=== PATIENT | male | born 1960 | race Caucasian/White ===

== ENCOUNTER 2020-10-14 20:26 | Inpatient (IN) | payer BC, OTHER ==
[2020-10-14 21:22] LABS: Basophils % (A) 1 %; Eosinophils # (A) 0.1 k/uL (0-0.7); Eosinophils % (A) 1 %; HCT 50.6 % (39.0-53.0); HGB 17.8 gm/dL (13.0-17.5); Lymphocytes # (A) 0.7 k/uL (1.0-4.8); Lymphocytes % (A) 17 %; MCHC 35.1 g/dL (31.0-37.0); MCV 91.1 fL (80.0-100.0); Mean Platelet Volume 7.6; Monocytes # (A) 0.2 k/uL (0-1.0); Monocytes % (A) 5 %; Neutrophils # (A) 2.8 k/uL (1.3-7.7); Neutrophils % (A) 75 %; Platelet Count 168 k/uL (150-450); RBC 5.55 m/uL (4.30-5.90); WBC 3.8 k/uL (3.8-10.6)
--- NOTE | 2020-10-14 21:27 | ED ---
SOB HPI - General Chief Complaint: Shortness of Breath Stated Complaint: SOB Time Seen by Provider: 10/14/20 20:39 Source: patient Mode of arrival: wheelchair Limitations: no limitations - History of Present Illness Initial Comments: Pan is a 60-year-old male who presents to the emergency department today for evaluation of shortness of breath, fever and body aches. Patient reports he's been progressively getting worse over approximately 10 days, he has a cough that is nonproductive, shortness of breath and worsening. She denies any chest pain or palpitations. He's had subjective fevers. Denies any nausea vomiting or diarrhea but does report a change in taste and smell. Patient's concerned he may have COVID 1920 has no known exposure she does report that he has been grocery shopping once every 2 weeks and he did going to public to have a haircut. - Related Data Allergies Allergy/AdvReac Type Severity Reaction Status Date / Time No Known Allergies Allergy Verified 10/14/20 20:31 Review of Systems ROS Statement: Those systems with pertinent positive or pertinent negative responses have been documented in the HPI. ROS Other: All systems not noted in ROS Statement are negative. Past Medical History Past Medical History: Pulmonary Embolus (PE) History of Any Multi-Drug Resistant Organisms: None Reported Additional Past Surgical History / Comment(s): rt leg vascular repair Past Psychological History: No Psychological Hx Reported Smoking Status: Former smoker Past Alcohol Use History: None Reported Past Drug Use History: None Reported General Exam - General Exam Comments Initial Comments: Physical Exam GENERAL: Ill appearing Mottled skin HENT: Normocephalic, Atraumatic. EYES: PERRL, EOMI PULMONARY: Tachypnea, clear respirations CARDIOVASCULAR: There is a regular rate and rhythm without any murmurs gallops or rubs. ABDOMEN: Soft and nontender with normal bowel sounds. SKIN: mottled : Deferred NEUROLOGIC: Patient is alert and oriented x3. Moving all extremities spontaneously MUSCULOSKELETAL: Normal extremities with adequate strength and full range of motion. No lower extremity swelling or edema. No calf tenderness. PSYCHIATRIC: Normal psychiatric evaluation. Limitations: no limitations Course Vital Signs 10/14/20 20:28 Temperature 99.9 F H Pulse Rate 99 Respiratory 28 H Rate Blood Pressure 101/69 O2 Sat by Pulse 83 L Oximetry Medical Decision Making - Medical Decision Making Patient febrile, tachycardic and tachypneic on arrival with hypoxia to 83% on room air placed on 6 L nasal cannula COVID workup initiated Labs and chest x-ray are consistent with COVID, rapid COVID test is positive Given that the patient is requiring oxygen we will plan to admit the patient for COVID pneumonia with hypoxia Patient care was [facility] with [facility] the admission consults to infectious di sease and pulmonology - Lab Data Result diagrams: 10/14/20 21:12 10/14/20 21:12 Lab Results 10/14/20 10/14/20 10/14/20 Range/Units 21:12 21:12 21:12 WBC 3.8 (3.8-10.6) k/uL RBC 5.55 (4.30-5.90) m/uL Hgb 17.8 H (13.0-17.5) gm/dL Hct 50.6 (39.0-53.0) % MCV 91.1 (80.0-100.0) fL MCH 32.0 (25.0-35.0) pg MCHC 35.1 (31.0-37.0) g/dL RDW 13.0 (11.5-15.5) % Plt Count 168 (150-450) k/uL MPV 7.6 Neutrophils % 75 % Lymphocytes % 17 % Monocytes % 5 % Eosinophils % 1 % Basophils % 1 % Neutrophils # 2.8 (1.3-7.7) k/uL Lymphocytes # 0.7 L (1.0-4.8) k/uL Monocytes # 0.2 (0-1.0) k/uL Eosinophils # 0.1 (0-0.7) k/uL Basophils # 0.0 (0-0.2) k/uL PT 10.3 (9.0-12.0) sec INR 1.0 (<1.2) APTT 22.8 (22.0-30.0) sec D-Dimer 1.46 H (<0.60) mg/L FEU Sodium 135 L (137-145) mmol/L Potassium 3.9 (3.5-5.1) mmol/L Chloride 103 (98-107) mmol/L Carbon Dioxide 22 (22-30) mmol/L Anion Gap 10 mmol/L BUN 43 H (9-20) mg/dL Creatinine 1.66 H (0.66-1.25) mg/dL Est GFR (CKD-EPI)AfAm 51 (>60 ml/min/1.73 sqM) Est GFR (CKD-EPI)NonAf 44 (>60 ml/min/1.73 sqM) Glucose 133 H (74-99) mg/dL Calcium 9.1 (8.4-10.2) mg/dL Magnesium 2.1 (1.6-2.3) mg/dL Total Bilirubin 1.0 (0.2-1.3) mg/dL AST 75 H (17-59) U/L ALT 57 H (4-49) U/L Alkaline Phosphatase 77 (38-126) U/L Lactate Dehydrogenase 2143 H (313-618) U/L C-Reactive Protein 69.2 H (<10.0) mg/L Total Protein 6.7 (6.3-8.2) g/dL Albumin 3.8 (3.5-5.0) g/dL Coronavirus (PCR) (Not Detectd) 10/14/20 Range/Units 21:12 WBC (3.8-10.6) k/uL RBC (4.30-5.90) m/uL Hgb (13.0-17.5) gm/dL Hct (39.0-53.0) % MCV (80.0-100.0) fL MCH (25.0-35.0) pg MCHC (31.0-37.0) g/dL RDW (11.5-15.5) % Plt Count (150-450) k/uL MPV Neutrophils % % Lymphocytes % % Monocytes % % Eosinophils % % Basophils % % Neutrophils # (1.3-7.7) k/uL Lymphocytes # (1.0-4.8) k/uL Monocytes # (0-1.0) k/uL Eosinophils # (0-0.7) k/uL Basophils # (0-0.2) k/uL PT (9.0-12.0) sec INR (<1.2) APTT (22.0-30.0) sec D-Dimer (<0.60) mg/L FEU Sodium (137-145) mmol/L Potassium (3.5-5.1) mmol/L Chloride (98-107) mmol/L Carbon Dioxide (22-30) mmol/L Anion Gap mmol/L BUN (9-20) mg/dL Creatinine (0.66-1.25) mg/dL Est GFR (CKD-EPI)AfAm (>60 ml/min/1.73 sqM) Est GFR (CKD-EPI)NonAf (>60 ml/min/1.73 sqM) Glucose (74-99) mg/dL Calcium (8.4-10.2) mg/dL Magnesium (1.6-2.3) mg/dL Total Bilirubin (0.2-1.3) mg/dL AST (17-59) U/L ALT (4-49) U/L Alkaline Phosphatase (38-126) U/L Lactate Dehydrogenase (313-618) U/L C-Reactive Protein (<10.0) mg/L Total Protein (6.3-8.2) g/dL Albumin (3.5-5.0) g/dL Coronavirus (PCR) Detected A (Not Detectd) Disposition Clinical Impression: COVID-19, Hypoxia Disposition: ADMITTED IP TO THIS HOSP Condition: Serious Is patient prescribed a controlled substance at d/c from ED?: No Referrals: Lynn Seth DO [Primary Care Provider] - 1-2 days
--- NOTE | 2020-10-14 21:31 | XR ---
EXAMINATION TYPE: XR chest 1V portable DATE OF EXAM: 10/14/2020 COMPARISON: NONE HISTORY: Short of breath and fever TECHNIQUE: Renal view FINDINGS: There is some pulmonary interstitial edema. Heart is top normal in size. There are chest le ads. Costophrenic angles are clear. IMPRESSION: Mild pulmonary interstitial edema. Borderline cardiomegaly. Appearance could relate to mi ld acute heart failure or acute interstitial pneumonia.
[2020-10-14 21:33] LABS: Albumin 3.8 g/dL (3.5-5.0); C Reactive Protein 69.2 mg/L (<10.0); Calcium 9.1 mg/dL (8.4-10.2); Magnesium 2.1 mg/dL (1.6-2.3); Potassium 3.9 mmol/L (3.5-5.1); Total Protein 6.7 g/dL (6.3-8.2)
[2020-10-14 21:37] LABS: Partial Thromboplastin Time 22.8 sec (22.0-30.0); Prothrombin Time 10.3 sec (9.0-12.0)
[2020-10-14 21:41] LABS: D-Dimer 1.46 mg/L FEU (<0.60)
[2020-10-14] MEDS ORDERED: NALOXONE 0.4 MG/ML 1 ML VIAL IV PRN (21:48)
[2020-10-14] MEDS ORDERED: SODIUM CHLORIDE 0.9% 500 ML 500 ML IV ONE (22:54)
[2020-10-14] MEDS ORDERED: IPRATROPIUM-ALBUTEROL 3 ML NEB INHALATION PRN (23:47)
[2020-10-14] MEDS ORDERED: ACETAMINOPHEN TAB 325 MG TAB PO PRN (23:50)
[2020-10-14] MEDS: SODIUM CHLORIDE 0.9% 1,000 ML IV SCH (23:56)
[2020-10-14] MEDS: DEXAMETHASONE SOD PHOSPHATE 10 MG/ML 1 ML VIAL IV SCH (23:57)
[2020-10-15 04:12] LABS: Ferritin 2747.5 ng/mL (22.0-322.0)
[2020-10-15] MEDS ORDERED: ALBUTEROL HFA INHALER INHALATION PRN (05:18)
[2020-10-15] MEDS: INSULIN ASPART (NovoLOG) 100 UNIT/ML VIAL SQ SCH ×4 (06:44→20:49)
[2020-10-15 06:48] LABS: Glucose,Whole Blood 139 mg/dL (75-99)
[2020-10-15] MEDS: DEXAMETHASONE SOD PHOSPHATE 10 MG/ML 1 ML VIAL IV SCH ×2 (08:20→20:50)
[2020-10-15] MEDS: ALBUTEROL HFA INHALER INHALATION SCH ×4 (08:40→20:58)
[2020-10-15] MEDS ORDERED: ENOXAPARIN 40 MG/0.4 ML SYRINGE SQ STA (10:13)
[2020-10-15 10:54] LABS: Glucose,Whole Blood 154 mg/dL (75-99)
[2020-10-15] MEDS: CHOLECALCIFEROL 25 MCG (1000 IU) TABLET PO SCH (11:06)
[2020-10-15] MEDS: ZINC SULFATE 220 MG CAP PO SCH (11:06)
[2020-10-15] MEDS: ASCORBIC ACID 500 MG TAB PO SCH (11:06)
[2020-10-15] MEDS: COLCHICINE 0.6 MG EACH PO SCH ×2 (11:08→20:49)
--- NOTE | 2020-10-15 12:40 | P.CNPUL ---
History of Present Illness Consult date: 10/15/20 Requesting physician: Marco Suarez Reason for consult: dyspnea, pneumonia Chief complaint: Shortness of breath, fever History of present illness: This is a 60-year-old white male, known previous significant medical history except for remote history of pulmonary embolism, patient was brought into the ER yesterday with multiple constitutional symptoms since October 01. Patient has been complaining of intermittent episodes of fever chills, nausea vomiting, shortness of breath, cough, fever and body aches. This has been progressively getting worse over the last 2 weeks. Describes the cough as nonproductive cough, but it is associated with significant shortness of breath. Patient had no diarrhea, no loss of sensation of taste or smell. No clear-cut history of exposure to any patient with covid19 infection. But the patient has been grocery shopping and has been going in public to have a haircut. Workup in the ER showed mild interstitial infiltrates/interstitial pneumonia, and he also tested positive for covid 19 based on PCR patient required significant amount of FiO2, he was placed on 15 L high flow nasal cannula to maintain O2 saturation in the low 90s. Hence the patient was admitted and this consult was initiated. I evaluated the patient this morning, and he was noted to be extremely short of breath, his clinical findings and his chest x-ray findings did not truly c orrelate with his profound hypoxia, hence I am recommending that the patient transferred to the ICU, I have started the patient on the Covid 19 cocktail, I will recommend a VQ scan since his renal functioning prohibits performing a CT angiogram of the chest, and I have also recommended a venous Doppler of lower extremities. CBC was relatively normal d-dimer was 1.46. Ferritin is 2747 LDH is 2143 C-reactive protein is 69.2. Pro-calcitonin is 0.27. His inflammatory markers are significantly elevated. Review of Systems Constitutional: Multiple constitutional symptoms but mostly fever chills, body aches, and weakness. HEENT: Negative minimal sore throat, no symptoms of loss of sensation of taste or smell. Pulmonary: Cough and shortness of breath as noted in HPI. GI: Nausea, but no diarrhea, no abdominal pain. No melena no hematemesis. Genitourinary: Negative. Musculoskeletal: Aches and pains. Skin: Negative. Neurologic: Intermittent headaches. Hematologic: Negative. Psychiatric: Negative. Endocrine: Negative. Past Medical History Past Medical History: Pulmonary Embolus (PE) Additional Past Medical History / Comment(s): jimena filter History of Any Multi-Drug Resistant Organisms: None Reported Additional Past Surgical History / Comment(s): rt leg vascular repair- arthroscopy Past Psychological History: No Psychological Hx Reported Smoking Status: Former smoker Past Alcohol Use History: None Reported Past Drug Use History: None Reported Medications and Allergies Home Medications Medication Instructions Recorded Confirmed Type Acetaminophen Tab [Tylenol Tab] 1,000 mg PO Q6HR PRN 10/14/20 10/14/20 History Aspirin EC [Ecotrin Low Dose] 81 mg PO DAILY 10/14/20 10/14/20 History Clopidogrel Bisulfate [Plavix] 75 mg PO DAILY 10/14/20 10/14/20 History Allergies Allergy/AdvReac Type Severity Reaction Status Date / Time No Known Allergies Allergy Verified 10/14/20 22:02 Physical Exam Vitals: Vital Signs Temp Pulse Pulse Resp BP BP Pulse Ox 10/15/20 11:00 92 42 H 140/82 92 L 10/15/20 10:51 90 86 L 10/15/20 08:00 97.8 F 84 20 131/79 10/15/20 03:00 97.7 F 95 20 133/66 95 10/14/20 23:32 20 98 10/14/20 23:31 97.9 F 90 22 109/67 78 L 10/14/20 22:54 90 18 122/62 95 10/14/20 21:58 89 20 125/77 96 10/14/20 20:28 99.9 F H 99 28 H 101/69 83 L Intake and Output 10/14/20 10/15/20 10/15/20 22:59 06:59 14:59 Intake Total 500 75 Output Total 425 Balance 75 75 Intake: Intake, IV Titration 500 75 Amount Sodium Chloride 0.9% 1, 75 000 ml @ 75 mls/hr IV . [id number] [facility] Rx#:[id number] Sodium Chloride 0.9% 500 500 ml 500 ml @ 999 mls/hr IV .Q31M ONE Rx#:[id number] Output: Urine 425 Other: Weight 81.647 kg Physical Exam: Revealed 60-year-old white male in moderate respiratory distress on 15 L high flow nasal cannula. Head: Atraumatic, normocephalic. HEENT:[Neck is supple.] [No neck masses.] [No thyromegaly.] [No JVD.] PERRLA, EOMI, nonicteric. Chest: [Symmetrical chest expansion, minimal fine crackles at the bases, no rhonchi and no wheezes] Cardiac Exam: [Normal S1 and S2, no S3 gallop, no murmur.] Abdomen: [Soft, nontender, no megaly, no rebound, no guarding, normal bowel sounds.] Extremities: [No clubbing, no edema, no cyanosis.] Good pulses bilaterally. Neurological Exam: Alert and oriented 3. [No focal neurologic deficit.] Psychiatric: Normal mood, affect and normal mental status examination. Skin: No rashes. Musculoskeletal: No deformities noted limitation of range of motion Results - Laboratory Findings CBC and BMP: 10/14/20 21:12 10/14/20 21:12 PT/INR, D-dimer PT 10.3 sec (9.0-12.0) 10/14/20 21:12 INR 1.0 (<1.2) 10/14/20 21:12 D-Dimer 1.46 mg/L FEU (<0.60) H 10/14/20 21:12 Abnormal lab findings: Abnormal Labs 10/14/20 10/14/20 10/14/20 21:12 21:12 21:12 Hgb 17.8 H Lymphocytes # 0.7 L D-Dimer 1.46 H Sodium 135 L BUN 43 H Creatinine 1.66 H Glucose 133 H POC Glucose (mg/dL) Plasma Lactic Acid Vitaly Ferritin 2747.5 H AST 75 H ALT 57 H Lactate Dehydrogenase 2143 H C-Reactive Protein 69.2 H Procalcitonin Coronavirus (PCR) 10/14/20 10/14/20 10/14/20 21:12 21:12 21:12 Hgb Lymphocytes # D-Dimer Sodium BUN Creatinine Glucose POC Glucose (mg/dL) Plasma Lactic Acid Vitaly 2.1 H* Ferritin AST ALT Lactate Dehydrogenase C-Reactive Protein Procalcitonin 0.27 H Coronavirus (PCR) Detected A 10/15/20 10/15/20 10/15/20 01:00 06:41 10:53 Hgb Lymphocytes # D-Dimer Sodium BUN Creatinine Glucose POC Glucose (mg/dL) 139 H 154 H Plasma Lactic Acid Vitaly 2.9 H* Ferritin AST ALT Lactate Dehydrogenase C-Reactive Protein Procalcitonin Coronavirus (PCR) - Diagnostic Findings Chest x-ray: image reviewed (As noted in HPI) CT scan - chest: image reviewed Assessment and Plan Assessment: Impression: Acute hypoxic respiratory failure secondary to acute covid 19 pneumonitis. Elevated inflammatory markers related to acute Covid 19 pneumonitis History of pulmonary embolism History of peripheral vessel occlusive disease Acute or possibly chronic kidney injury, baseline renal functioning is unknown, but creatinine on this admission is 1.66, and a GFR is 44 mL per minutes. Recommendation: Transfer patient to ICU. Titrate oxygen accordingly and maintain O2 saturation above 90%. Start patient on the Covid 19 cocktail. However the patient is beyond the window for remdesivir Placed patient on Lovenox 40 mg subcu daily Placed patient on colchicine 0.6 twice a day Arrange for a VQ scan, slightly concerned about the possibility of underlying thromboembolic disease. Especially with the patient's history of pulmonary embolism and especially with the fact that his chest x-ray findings do not truly correlate with his clinical findings Arrange for bilateral venous Doppler We will continue to follow closely. Again and ramus were made to transfer the patient to the ICU immediately. Time with Patient: Greater than 30
[2020-10-15 12:49] LABS: Glucose,Whole Blood 141 mg/dL (75-99)
--- NOTE | 2020-10-15 14:16 | US ---
EXAMINATION TYPE: US venous doppler duplex LE DATE OF EXAM: 10/15/2020 1:59 PM COMPARISON: NONE CLINICAL HISTORY: sob elevated d dimer. SOB covid elevated d dimer. SIDE PERFORMED: Bilateral TECHNIQUE: The lower extremity deep venous system is examined utilizing real time linear array sonog becka with graded compression, doppler sonography and color-flow sonography. VESSELS IMAGED: Common Femoral Vein Deep Femoral Vein Greater Saphenous Vein * Femoral Vein Popliteal Vein Small Saphenous Vein * Proximal Calf Veins (* superficial vessels) Right Leg: Negative for DVT Left Leg: Negative for DVT IMPRESSION: No evidence of deep vein thrombosis in both legs.
--- NOTE | 2020-10-15 15:09 | P.HPIM ---
History of Present Illness H&P Date: 10/15/20 Chief Complaint: Shortness of breath Patient is a 60-year-old male with a known history of pulmonary embolism status post Willard filter in 2007 and previous history of smoking presents to ER with the complaints of shortness of breath, cough without sputum production, fev er and generalized body aches. Patient says that he initially had abdominal discomfort and diarrhea which was resolved about 2 weeks ago. Patient has been having progressively worsening symptoms. Denied any chest pain. Denied any sick contacts are recent travel. Denied any leg swelling. Chest x-ray showed mild pulmonary infiltrate interstitial edema. Borderline cardiac regular. Appearance could relate to mild acute heart failure doubt acute interstitial pneumonia. EKG showed normal sinus rhythm next and laboratory data in the ER showed WBC 3.8, hemoglobin 17.8 and platelets 168 lymphocytes 0.7 and d-dimer 1.46 Sodium 135 potassium 3.9 BUN 43 and creatinine 1.66 lactic acid 2.1 on admission Ferritin 2747.5, AST 74-year-old is 57 LDH 2143 and CRP 69.2 and pro calcitonin level is 0.2 [address]. T-max was 99.9 on admission and patient was saturating at 83% on room air and tachypneic with respiratory rate 28 and tachycardic on admission. Review of Systems Constitutional: Patient does have fever, chills and generalized weakness and body aches. Abdomen: Patient denied nausea vomiting and diarrhea and abdominal pain. Cardiovascular: Patient denies any chest pain or short of breath no palpitations. Respiratory: Cough without sputum production and shortness of breath Neurologic: Patient denied any numbness or tingling headache. Musculoskeletal: Patient denies any complaints of joint swelling or deformity. Skin: Negative Psychiatric: Negative Endocrine: No heat or cold intolerance. No recent weight gain. Genitourinary: No dysuria or hematuria. All other 14 point ROS negative except the above Past Medical History Past Medical History: Pulmonary Embolus (PE) Additional Past Medical History / Comment(s): jimena filter History of Any Multi-Drug Resistant Organisms: None Reported Additional Past Surgical History / Comment(s): rt leg vascular repair- arthroscopy Past Psychological History: No Psychological Hx Reported Smoking Status: Former smoker Past Alcohol Use History: None Reported Past Drug Use History: None Reported Medications and Allergies Home Medications Medication Instructions Recorded Confirmed Type Acetaminophen Tab [Tylenol Tab] 1,000 mg PO Q6HR PRN 10/14/20 10/14/20 History Aspirin EC [Ecotrin Low Dose] 81 mg PO DAILY 10/14/20 10/14/20 History Clopidogrel Bisulfate [Plavix] 75 mg PO DAILY 10/14/20 10/14/20 History Allergies Allergy/AdvReac Type Severity Reaction Status Date / Time No Known Allergies Allergy Verified 10/14/20 22:02 Physical Exam Vitals: Vital Signs Temp Pulse Pulse Resp BP BP Pulse Ox 10/15/20 08:00 97.8 F 84 20 131/79 10/15/20 03:00 97.7 F 95 20 133/66 95 10/14/20 23:32 20 98 10/14/20 23:31 97.9 F 90 22 109/67 78 L 10/14/20 22:54 90 18 122/62 95 10/14/20 21:58 89 20 125/77 96 10/14/20 20:28 99.9 F H 99 28 H 101/69 83 L Intake and Output 10/14/20 10/15/20 10/15/20 22:59 06:59 14:59 Intake Total 500 Output Total 425 Balance 75 Intake: Intake, IV Titration 500 Amount Sodium Chloride 0.9% 500 500 ml 500 ml @ 999 mls/hr IV .Q31M ONE Rx#:[id number] Output: Urine 425 Other: Weight 81.647 kg PHYSICAL EXAMINATION: Patient is lying in the bed comfortably, no acute distress, awake alert and oriented.. HEENT: Normocephalic. Neck is supple. Pupils reactive. Nostrils clear. Oral cavity is moist. Ears reveal no drainage. Neck reveals no JVD, carotid bruits, or thyromegaly. CHEST EXAMINATION: Trachea is central. Symmetrical expansion. Bilateral coarse breath sounds. No wheezing or rhonchi. CARDIAC: Normal S1, S2 with no gallops. No murmurs ABDOMEN: Soft. Bowel sounds normal. No organomegaly. No abdominal bruits. Extremities: reveal no edema. No clubbing or cyanosis Neurologically awake, alert, oriented x3 with well-coordinated movements. No focal deficits noted Skin: No rash or skin lesions. Psychiatric: Coperative. Nonsuicidal Musculoskeletal: No joint swelling or deformity. Normal range of motion. Results CBC & Chem 7: 10/14/20 21:12 10/14/20 21:12 Labs: Abnormal Lab Results - Last 24 Hours (Table) 10/14/20 10/14/20 10/14/20 Range/Units 21:12 21:12 21:12 Hgb 17.8 H (13.0-17.5) gm/dL Lymphocytes # 0.7 L (1.0-4.8) k/uL D-Dimer 1.46 H (<0.60) mg/L FEU Sodium 135 L (137-145) mmol/L BUN 43 H (9-20) mg/dL Creatinine 1.66 H (0.66-1.25) mg/dL Glucose 133 H (74-99) mg/dL POC Glucose (mg/dL) (75-99) mg/dL Plasma Lactic Acid Vitaly (0.7-2.0) mmol/L Ferritin 2747.5 H (22.0-322.0) ng/mL AST 75 H (17-59) U/L ALT 57 H (4-49) U/L Lactate Dehydrogenase 2143 H (313-618) U/L C-Reactive Protein 69.2 H (<10.0) mg/L Procalcitonin (0.02-0.09) ng/mL Coronavirus (PCR) (Not Detectd) 10/14/20 10/14/20 10/14/20 Range/Units 21:12 21:12 21:12 Hgb (13.0-17.5) gm/dL Lymphocytes # (1.0-4.8) k/uL D-Dimer (<0.60) mg/L FEU Sodium (137-145) mmol/L BUN (9-20) mg/dL Creatinine (0.66-1.25) mg/dL Glucose (74-99) mg/dL POC Glucose (mg/dL) (75-99) mg/dL Plasma Lactic Acid Vitaly 2.1 H* (0.7-2.0) mmol/L Ferritin (22.0-322.0) ng/mL AST (17-59) U/L ALT (4-49) U/L Lactate Dehydrogenase (313-618) U/L C-Reactive Protein (<10.0) mg/L Procalcitonin 0.27 H (0.02-0.09) ng/mL Coronavirus (PCR) Detected A (Not Detectd) 10/15/20 10/15/20 10/15/20 Range/Units 01:00 06:41 10:53 Hgb (13.0-17.5) gm/dL Lymphocytes # (1.0-4.8) k/uL D-Dimer (<0.60) mg/L FEU Sodium (137-145) mmol/L BUN (9-20) mg/dL Creatinine (0.66-1.25) mg/dL Glucose (74-99) mg/dL POC Glucose (mg/dL) 139 H 154 H (75-99) mg/dL Plasma Lactic Acid Vitaly 2.9 H* (0.7-2.0) mmol/L Ferritin (22.0-322.0) ng/mL AST (17-59) U/L ALT (4-49) U/L Lactate Dehydrogenase (313-618) U/L C-Reactive Protein (<10.0) mg/L Procalcitonin (0.02-0.09) ng/mL Coronavirus (PCR) (Not Detectd) Thrombosis Risk Factor Assmnt - DVT/VTE Prophylaxis DVT/VTE Prophylaxis: Pharmacologic Prophylaxis ordered - Choose All That Apply Any of the Below Risk Factors Present?: Yes Each Factor Represents 1 point: Age 41-60 years Other Risk Factors: Yes Each Risk Factor Represents 3 Points: History of DVT/PE Other congenital or acquired thrombophilia - If yes, enter type in comment: No Thrombosis Risk Factor Assessment Total Risk Factor Score: 4 Thrombosis Risk Factor Assessment Level: Moderate Risk Assessment and Plan Assessment: Acute hypoxic respiratory failure secondary to COVID 19 pneumonia Elevated inflammatory markers secondary to above. Acute kidney injury with possible underlying CK D stage III Elevated d-dimer level I.49 History of PE status post Jimena filter placement in 2018 Peripheral vascular disease history Previous history of smoking DVT prophylaxis with Lovenox Plan: Patient will be continued on oxygen supplementation and was requiring 100% nonrebreather. Due to worsening respiratory status patient is being transferred to MICU for close monitoring. Continue with dexamethasone, Lovenox, multivitamins and supportive care. Started on colchicine 0.6 twice a day as well. VQ scan was ordered due to elevated d-dimer level and acute kidney injury. Continue to monitor closely and further recommendations based on clinical c ourse. Time with Patient: Greater than 30
--- NOTE | 2020-10-15 15:50 | NM ---
EXAMINATION TYPE: NM pul perfusion DATE OF EXAM: 10/15/2020 COMPARISON: NONE HISTORY: Short of breath. Following administration of 4.6 mCi Tc 99m MAA. Images obtained post injection. FINDINGS: There is fairly uniform perfusion of both lungs. I see no segmental or subsegmental significant defec t to suggest pulmonary embolism. There is slight decreased perfusion of both upper lobes compared to the lower lobes. This could relate to airway disease. IMPRESSION: There is low probability of pulmonary embolism.
[2020-10-15] MEDS ORDERED: AZITHROMYCIN 500 MG in SODIUM CHLORIDE 0.9% 250 ML IVPB STA (16:17)
[2020-10-15 17:11] LABS: Glucose,Whole Blood 147 mg/dL (75-99)
[2020-10-15] MEDS: SODIUM CHLORIDE 0.9% 1,000 ML IV SCH (17:37)
--- NOTE | 2020-10-15 18:18 | CONS ---
CONSULTATION DATE OF SERVICE: 10/15/2020 REASON FOR CONSULTATION: COVID-19 pneumonia. HISTORY OF PRESENT ILLNESS: The patient is a 60-year-old male presenting to the ER at [facility] last night for evaluation of increasing shortness of breath. The patient said this has been going on for about 2 weeks. Initially started with mostly GI symptoms in this patient who did have nausea and vomiting and some diarrhea. The patient did have a low-grade fever. The patient thought it was more of a gastroenteritis. However, subsequently started having body aches and feeling weak and tired and fever. The patient started having increasing shortness of breath over the last few days on minimal exertion. The patient also has a cough which has been moderate intensity with occasional sputum production which is mostly whitish. No hemoptysis. Denies having any pleuritic chest pain. No nausea, no vomiting. However, continued to have diarrhea. With these symptoms, the patient presented to hospital. On arrival to the ER, the patient did have a low-grade fever of 99.9 degrees Fahrenheit. The patient was hypoxic with O2 sats of 83% on room air. The patient is currently requiring high-flow nasal cannula oxygen and because of increasing requirement of oxygen, he was initially admitted to the floor and subsequently transferred to the hospital ICU. The patient is hemodynamically stable. Not on any pressor support. The patient did have a normal white count with lymphopenia. D-dimer was elevated 1.46. The patient did have elevated lactic acid as well as elevated creatinine and elevated ferritin and liver enzymes. The patient also has elevated procalcitonin 0.27. The patient did have a chest x-ray which shows mild pulmonary interstitial edema, borderline cardiomegaly with concern for aspiration pneumonia. Patient did have a lower extremity Doppler that has been negative for DVT and pulmonary perfusion imaging was low probability for PE. The patient has been admitted to the ICU, started on a tapering for Covid 19. Infectious Disease was consulted for further management. REVIEW OF SYSTEMS: Positive points have been mentioned in HPI. Rest of systems are negative. PAST MEDICAL HISTORY: Pulmonary embolism and history of right leg vascular trauma. PAST SURGICAL HISTORY: Right leg vascular repair. SOCIAL HISTORY: Remote history of smoking. No drinking or drug use. FAMILY HISTORY: No pertinent findings noticed. ALLERGIES: No known drug allergies. MEDICATIONS: Include the patient is currently on Tylenol, Ventolin, vitamin C, vitamin D3, colchicine, dexamethasone, Lovenox, zinc, IV fluid, Narcan. PHYSICAL EXAMINATION: Blood pressure 130/70 with a pulse of 83, temperature of 97.8, T-max 99.9. He is 95% on BiPAP. General description is a middle-aged male lying in bed in no distress. No tachypnea or accessory muscles of respiration use. HEENT: Examination shows no pallor or scleral icterus. Oral mucous membranes dry. NECK: Trachea midline. No thyromegaly. LUNGS unlabored breathing. Coarse breath sounds bilaterally. No wheeze. HEART S1, S2. Regular rate and rhythm. ABDOMEN: Soft. No tenderness. No guarding. No rigidity. EXTREMITIES: No edema of the feet. SKIN examination: No rash or mass palpable. NEUROLOGICAL: Patient is awake, alert, oriented times three. Mood and affect normal. LABS: Hemoglobin is 13.8, white count 3.8 with lymphopenia. D-dimer is 1.46, creatinine 1.66. Lactic acid 2.1. Repeat is 2.9. Ferritin is 2747. LDH is 2143. CRP 69. Procalcitonin 0.27. Chest x-ray report mentioned above. Lower extremity Doppler negative. Perfusion imaging low probability for PE. DIAGNOSTIC IMPRESSION AND PLAN: Patient admitted to the hospital with acute respiratory failure. Source is likely acute COVID-19 pneumonia with clinic suspicion low for underlying secondary bacterial pneumonia not entirely excluded in view of elevated procalcitonin 0.27. Unfortunately the patient's symptoms have been going on for more than 2 weeks and is currently out of the therapeutic window for Remdesivir and with high inflammatory markers, more likely to be going into the PLAN: 1. The patient is currently covered with dexamethasone, may benefit from high-dose steroids and colchicine. 2. Lovenox, vitamin C, and zinc. 3. We will add Rocephin and Zithromax to cover for possible bacterial component. 4. We will follow on his clinical condition and culture to further adjust medication if needed. Thank you for this consultation. Will follow this patient along with you. MMODL / IJN: [id number] /
[2020-10-15 20:43] LABS: Glucose,Whole Blood 132 mg/dL (75-99)
[2020-10-16] MEDS: SODIUM CHLORIDE 0.9% 1,000 ML IV SCH ×2 (03:48→16:21)
[2020-10-16 04:57] LABS: Basophils % (A) 0 %; Eosinophils % (A) 0 %; HCT 45.5 % (39.0-53.0); HGB 15.3 gm/dL (13.0-17.5); Lymphocytes # (A) 0.4 k/uL (1.0-4.8); Lymphocytes % (A) 7 %; MCH 31.3 pg (25.0-35.0); MCHC 33.7 g/dL (31.0-37.0); MCV 92.9 fL (80.0-100.0); Mean Platelet Volume 7.8; Monocytes # (A) 0.3 k/uL (0-1.0); Monocytes % (A) 4 %; Neutrophils # (A) 5.1 k/uL (1.3-7.7); Neutrophils % (A) 87 %; Platelet Count 187 k/uL (150-450); RBC 4.89 m/uL (4.30-5.90); RDW 13.2 % (11.5-15.5); WBC 5.8 k/uL (3.8-10.6)
[2020-10-16 05:03] LABS: African American GFR (CKD) >90 (>60 ml/min/1.73 sqM); Anion Gap 10 mmol/L; Blood Urea Nitrogen 30 mg/dL (9-20); C Reactive Protein 49.7 mg/L (<10.0); Calcium 8.2 mg/dL (8.4-10.2); Carbon Dioxide 20 mmol/L (22-30); Chloride 110 mmol/L (98-107); Glucose 146 mg/dL (74-99); Non-African American GFR(CKD) >90 (>60 ml/min/1.73 sqM); Potassium 3.6 mmol/L (3.5-5.1); Sodium 140 mmol/L (137-145)
[2020-10-16 05:14] LABS: LDH 2014 U/L (313-618)
[2020-10-16 07:05] LABS: Glucose,Whole Blood 138 mg/dL (75-99)
--- NOTE | 2020-10-16 07:05 | XR ---
EXAMINATION TYPE: XR chest 1V DATE OF EXAM: 10/16/2020 HISTORY: Shortness of breath. COMPARISON: 10/14/2020 TECHNIQUE: Single view of the chest is submitted. FINDINGS: Demonstrated are scattered senescent parenchymal change. Scattered interstitial infiltrates persist unchanged. The heart is stable. Hilar and mediastinal structures are within normal limits. Degenerative changes are seen of the dorsal spine. IMPRESSION: 1. Scattered interstitial infiltrates persist unchanged.
[2020-10-16] MEDS: INSULIN ASPART (NovoLOG) 100 UNIT/ML VIAL SQ SCH ×4 (07:07→20:21)
[2020-10-16] MEDS: ALBUTEROL HFA INHALER INHALATION SCH ×3 (07:30→20:07)
[2020-10-16] MEDS: ASCORBIC ACID 500 MG TAB PO SCH (07:44)
[2020-10-16] MEDS: ENOXAPARIN 40 MG/0.4 ML SYRINGE SQ SCH (07:45)
[2020-10-16] MEDS: ZINC SULFATE 220 MG CAP PO SCH (07:45)
[2020-10-16] MEDS: CHOLECALCIFEROL 25 MCG (1000 IU) TABLET PO SCH (07:45)
[2020-10-16] MEDS: DEXAMETHASONE SOD PHOSPHATE 10 MG/ML 1 ML VIAL IV SCH ×2 (07:46→20:08)
[2020-10-16] MEDS: COLCHICINE 0.6 MG EACH PO SCH ×2 (07:48→20:08)
[2020-10-16] MEDS ORDERED: POTASSIUM CHLORIDE ER 20 MEQ TAB.ER PO SCH (08:00)
--- NOTE | 2020-10-16 08:28 | P.PN ---
Subjective Progress Note Date: 10/16/20 This is a 60-year-old white male, known previous significant medical history except for remote history of pulmonary embolism, patient was brought into the ER yesterday with multiple constitutional symptoms since October 01. Patient has been complaining of intermittent episodes of fever chills, nausea vomiting, shortness of breath, cough, fever and body aches. This has been progressively getting worse over the last 2 weeks. Describes the cough as nonproductive cough, but it is associated with significant shortness of breath. Patient had no diarrhea, no loss of sensation of taste or smell. No clear-cut history of exposure to any patient with covid19 infection. But the patient has been grocery shopping and has been going in public to have a haircut. Workup in the ER showed mild interstitial infiltrates/interstitial pneumonia, and he also tested positive for covid 19 based on PCR patient required significant amount of FiO2, he was placed on 15 L high flow nasal cannula to maintain O2 saturation in the low 90s. Hence the patient was admitted and this consult was initiated. I evaluated the patient this morning, and he was noted to be extremely short of breath, his clinical findings and his chest x-ray findings did not truly correlate with his profound hypoxia, hence I am recommending that the patient transferred to the ICU, I have started the patient on the Covid 19 cocktail, I w ill recommend a VQ scan since his renal functioning prohibits performing a CT angiogram of the chest, and I have also recommended a venous Doppler of lower extremities. CBC was relatively normal d-dimer was 1.46. Ferritin is 2747 LDH is 2143 C-reactive protein is 69.2. Pro-calcitonin is 0.27. His inflammatory markers are significantly elevated. 10/16/2020 the patient is being seen for a follow-up. The patient remains in intensive care unit and he is having issues with his oxygenation. He was on 15 L of oxygen by nasal cannula in addition to a nonrebreather facemask and this will be transitioned to a high flow oxygen today. In terms of his inflammatory markers, his LDH level is at 2014 and the CRP is at 49.7. His numbers are improving compared to yesterday. Rest of the blood work essentially within normal limits. The patient's d-dimer is at 1.35 with a white cell count of 5.8. His chest x-ray from today is showing bilateral pulmonary infiltrates that are rather diffuse and a slightly worse on the left compared to the right. VQ scan came back of a low probability. Doppler of the lower extremities are also negative. The patient is currently on Lovenox 40 mg subcu for DVT prophylaxis. He is also on empiric antibiotic coverage with a combination of Rocephin and Zithromax. He remains on colchicine. He remains on Decadron 6 mg IV every 12 hours. IV fluids with normal saline at the rate of 75 mL an hour. He is tachypneic and his respiratory rate is in the mid 30s for now. Objective - Vital Signs Vital signs: Vital Signs Temp 98.3 F 10/16/20 04:00 Pulse 74 10/16/20 08:00 Resp 36 H 10/16/20 08:00 BP 118/69 10/16/20 08:00 Pulse Ox 92 L 10/16/20 08:00 Intake & Output 10/15/20 10/16/20 10/16/20 18:59 06:59 18:59 Intake Total 900 1400 150 Output Total 150 650 Balance 750 750 150 Intake: Intake, IV Titration 900 900 150 Amount Azithromycin 500 mg In 250 Sodium Chloride 0.9% 250 ml @ 250 mls/hr IVPB ONCE [facility] Rx#:[id number] Sodium Chloride 0.9% 1, 600 900 150 000 ml @ 75 mls/hr IV . [id number] [facility] Rx#:[id number] cefTRIAXone 1 gm In 50 Sodium Chloride 0.9% 50 ml @ 100 mls/hr IVPB Q24H [facility] Rx#:[id number] Oral 500 Output: Urine 150 650 Other: # Voids 1 # Bowel Movements 1 1 - Exam Physical Exam: Revealed 60-year-old white male in moderate respiratory distress on 15 L high flow nasal cannula. Patient seems to be quite tachypneic respiratory rate in the mid 30s. Pulse ox dropped down in the low 80s once he is off the nonrebreather. The child out on a high flow nasal Head exam was generally normal. There was no scleral icterus or corneal arcus. Mucous membranes were moist. Neck was supple and without jugular venous distension, thyromegaly, or carotid bruits. Carotids were easily palpable bilaterally. There was no adenopathy. Lungs sounds are diminished in the patient's cardiac and lung bases bilaterally and the patient seems to be tachypneic and respiratory rate is in the mid 30s Cardiac exam revealed the PMI to be normally situated and sized. The rhythm was regular and no extrasystoles were noted during several minutes of auscultation. The first and second heart sounds were normal and physiologic splitting of the second heart sound was noted. There were no murmurs, rubs, clicks, or gallops. Abdominal exam revealed normal bowel sounds. The abdomen was soft, non-tender, and without masses, organomegaly, or appreciable enlargement of the abdominal aorta. Examination of the extremities revealed easily palpable radial, femoral and pedal pulses. There was no cyanosis, clubbing or edema. Examination of the skin revealed no evidence of significant rashes, suspicious appearing nevi or other concerning lesions. Neurologically, the patient is awake and alert and the patient does not have any focal neurological deficit. Cranial nerves are essentially intact. - Labs CBC & Chem 7: 10/16/20 04:03 10/16/20 04:03 Labs: Abnormal Lab Results - Last 24 Hours (Table) 10/15/20 10/15/20 10/15/20 Range/Units 10:53 12:47 17:10 Lymphocytes # (1.0-4.8) k/uL D-Dimer (<0.60) mg/L FEU Chloride (98-107) mmol/L Carbon Dioxide (22-30) mmol/L BUN (9-20) mg/dL Glucose (74-99) mg/dL POC Glucose (mg/dL) 154 H 141 H 147 H (75-99) mg/dL Calcium (8.4-10.2) mg/dL Lactate Dehydrogenase (313-618) U/L C-Reactive Protein (<10.0) mg/L 10/15/20 10/16/20 10/16/20 Range/Units 20:41 04:03 04:03 Lymphocytes # 0.4 L (1.0-4.8) k/uL D-Dimer (<0.60) mg/L FEU Chloride 110 H (98-107) mmol/L Carbon Dioxide 20 L (22-30) mmol/L BUN 30 H (9-20) mg/dL Glucose 146 H (74-99) mg/dL POC Glucose (mg/dL) 132 H (75-99) mg/dL Calcium 8.2 L (8.4-10.2) mg/dL Lactate Dehydrogenase 2014 H (313-618) U/L C-Reactive Protein 49.7 H (<10.0) mg/L 10/16/20 10/16/20 Range/Units 04:03 07:03 Lymphocytes # (1.0-4.8) k/uL D-Dimer 1.35 H (<0.60) mg/L FEU Chloride (98-107) mmol/L Carbon Dioxide (22-30) mmol/L BUN (9-20) mg/dL Glucose (74-99) mg/dL POC Glucose (mg/dL) 138 H (75-99) mg/dL Calcium (8.4-10.2) mg/dL Lactate Dehydrogenase (313-618) U/L C-Reactive Protein (<10.0) mg/L Microbiology - Last 24 Hours (Table) 10/14/20 21:01 Blood Culture - Preliminary Blood No Growth after 24 hours 10/14/20 20:45 Blood Culture - Preliminary Blood No Growth after 24 hours Assessment and Plan Plan: 1 Acute hypoxic respiratory failure secondary to acute covid 19 pneumonitis. Patient has developed worsening in her oxygenation and the patient has developed diffuse but the pulmonary infiltrates consistent with colon cancer related pneumonia. His oxidation is worse and the patient is currently onoxygen at 15 L in addition to a nonrebreather facemask. He'll be trialed on AIrvo 60 L and FiO2 will be also adjusted to maintain saturation above 90%. He is on Decadron. 2 Elevated inflammatory markers related to acute Covid 19 pneumonitis 3 History of pulmonary embolism, repeat VQ scan was negative, repeat Doppler of the lower extremity was also negative 4 History of peripheral vessel occlusive disease 5 Acute or possibly chronic kidney injury, improved and the kidney function is normalized and the creatinine is down to 0.78. PLAN: Titrate oxygen accordingly and maintain O2 saturation above 90%. We'll start the patient on Airvo 60 liters and nonrebreather facemask if needed Start patient on the Covid 19 cocktail. However the patient is beyond the window for remdesivir and convalescent plasma Placed patient on Lovenox 40 mg subcu daily Placed patient on colchicine 0.6 twice a day CAT scan of the Doppler of the lower extremities are all negative Repeat inflammatory markers including LDH and CRP tomorrow. Repeat chest x-ray in a.m. We will continue to follow closely in the intensive care unit.
[2020-10-16 10:20] LABS: Ferritin 3295.8 ng/mL (22.0-322.0)
[2020-10-16] MEDS: LOPERAMIDE 2 MG CAP PO PRN ×2 (11:30→20:08)
[2020-10-16 11:37] LABS: Glucose,Whole Blood 130 mg/dL (75-99)
[2020-10-16] MEDS: AZITHROMYCIN 250 MG TAB PO SCH (16:21)
[2020-10-16 16:51] LABS: Glucose,Whole Blood 138 mg/dL (75-99)
--- NOTE | 2020-10-16 20:11 | PN ---
PROGRESS NOTE DATE OF SERVICE: 10/16/2020 REASON FOR FOLLOWUP: COVID-19 pneumonia. INTERVAL HISTORY: Patient is currently afebrile. The patient was started on AIRVO and seems to be breathing slightly comfortably today. Denies having any chest pain. Did have a cough, not bringing up any sputum. No abdominal pain. Did have diarrhea. PHYSICAL EXAMINATION: Blood pressure 122/74, pulse of 70. Temperature 97.9, he is 95% on AIRVO. GENERAL DESCRIPTION is a middle-aged male lying in bed in no distress. RESPIRATORY SYSTEM: Unlabored breathing, decreased breath sounds in the bases. No wheeze. HEART: S1-S2 regular. ABDOMEN: Soft, no tenderness. EXTREMITIES: No edema of the feet. LABS: Hemoglobin 15.1, white count of 5.9. BUN of 30, creatinine 0.78. Stool for C difficile is negative. DIAGNOSTIC IMPRESSION AND PLAN: Patient admitted to hospital with acute respiratory failure. Source is likely COVID-19 pneumonia with elevated Procalcitonin. The patient has been covered with antibiotic as well to continue in addition to the Lovenox, Dexamethasone, zinc and respiratory support. Continue supportive care. MMODL / IJN: [id number] /
[2020-10-16 20:27] LABS: Glucose,Whole Blood 150 mg/dL (75-99)
--- NOTE | 2020-10-17 00:26 | P.PN ---
Subjective Progress Note Date: 10/16/20 Principal diagnosis: Acute COVID-19 pneumonia Patient is a 60-year-old male with a known history of pulmonary embolism status post [place] filter in 2007 and previous history of smoking presents to ER with the complaints of shortness of breath, cough without sputum production, fever and generalized body aches. Patient says that he initially had abdominal discomfort and diarrhea which was resolved about 2 weeks ago. Patient has been having progressively worsening symptoms. Denied any chest pain. Denied any sick contacts are recent travel. Denied any leg swelling. Chest x-ray showed mild pulmonary infiltrate interstitial edema. Borderline cardiac regular. Appearance could relate to mild acute heart failure doubt acute interstitial pneumonia. EKG showed normal sinus rhythm next and laboratory data in the ER showed WBC 3.8, hemoglobin 17.8 and platelets 168 lymphocytes 0.7 and d-dimer 1.46 Sodium 135 potassium 3.9 BUN 43 and creatinine 1.66 lactic acid 2.1 on admission Ferritin 2747.5, AST 74-year-old is 57 LDH 2143 and CRP 69.2 and pro calcitonin level is 0.2 [address]. T-max was 99.9 on admission and patient was saturating at 83% on room air and tachypneic with respiratory rate 28 and tachycardic on admission. 10/16/2020 Patient is currently in the MICU. on Airvo 60 percent and is saturating at 96%. Patient is having diarrhea. Continued on IV hydration. Tolerating oral diet. Inflammatory markers are trending down slowly. Continue Decadron and Lovenox. Chest x-ray showed scattered interstitial infiltrates persist unchanged. Patient has been afebrile. Bilateral lower extremity duplex scan is negative for DVT at VQ scan is low probability for PE patient is being continued Lovenox 40 mg subcu daily. Also on empiric antibiotics of ceftriaxone and azithromycin. Pulmonary is following. Active Medications Generic Name Dose Route Start Last Admin Trade Name Freq PRN Reason Stop Dose Admin Acetaminophen 650 mg 10/14/20 23:50 Acetaminophen Tab 325 Mg Tab PO Q4HR PRN Fever and/ or Pain Albuterol Sulfate 1 puff 10/15/20 08:00 10/16/20 20:07 Albuterol Hfa Inhaler INHALATION 1 puff RT-TID [facility] Administration Albuterol Sulfate 1 puff 10/15/20 05:18 10/16/20 15:43 Albuterol Hfa Inhaler INHALATION 1 puff RT-TID PRN Administration Shortness Of Breath Or Wheezing Ascorbic Acid 1,000 mg 10/15/20 10:15 10/16/20 07:44 Ascorbic Acid 500 Mg Tab PO 1,000 mg DAILY TOBY Administration Azithromycin 250 mg 10/16/20 16:00 10/16/20 16:21 Azithromycin 250 Mg Tab PO 250 mg Q24H [facility] Administration Cholecalciferol 25 mcg 10/15/20 10:15 10/16/20 07:45 Cholecalciferol 25 Mcg (1000 Iu) Tablet PO 25 mcg DAILY [facility] Administration Colchicine 0.6 mg 10/15/20 10:15 10/16/20 20:08 Colchicine 0.6 Mg Each PO 0.6 mg BID TOBY Administration Dexamethasone Sodium Phosphate 6 mg 10/14/20 23:45 10/16/20 20:08 Dexamethasone Sod Phosphate 10 Mg/Ml 1 Ml Vial IV 6 mg BID TOBY Administration Enoxaparin Sodium 40 mg 10/16/20 09:00 10/16/20 07:45 Enoxaparin 40 Mg/0.4 Ml Syringe SQ 40 mg DAILY [facility] Administration Sodium Chloride 1,000 mls @ 75 mls/hr 10/14/20 23:45 10/16/20 16:21 Saline 0.9% IV 75 mls/hr .[id number] [facility] Administration Ceftriaxone Sodium 1 gm/ 50 mls @ 100 mls/hr 10/15/20 18:00 10/16/20 18:32 Sodium Chloride IVPB 100 mls/hr Q24H [facility] Administration Insulin Aspart 0 unit 10/15/20 07:30 10/16/20 20:21 Insulin Aspart (Novolog) 100 Unit/Ml Vial SQ 2 unit ACHS TOBY Administration Protocol Loperamide HCl 2 mg 10/15/20 16:50 10/16/20 20:08 Loperamide 2 Mg Cap PO 2 mg QID PRN Administration Diarrhea Naloxone HCl 0.2 mg 10/14/20 21:48 Naloxone 0.4 Mg/Ml 1 Ml Vial IV Q2M PRN Opioid Reversal Zinc Sulfate 220 mg 10/15/20 10:15 10/16/20 07:45 Zinc Sulfate 220 Mg Cap PO 220 mg DAILY TO[facility] Administration Objective - Vital Signs Vital signs: Vital Signs Temp 98.3 F 10/16/20 08:00 Pulse 64 10/16/20 11:00 Resp 31 H 10/16/20 11:45 BP 134/67 10/16/20 11:00 Pulse Ox 95 10/16/20 11:00 Intake & Output 10/15/20 10/16/20 10/16/20 18:59 06:59 18:59 Intake Total 900 1400 375 Output Total 150 650 101 Balance 750 750 274 Intake: Intake, IV Titration 900 900 375 Amount Azithromycin 500 mg In 250 Sodium Chloride 0.9% 250 ml @ 250 mls/hr IVPB ONCE [facility] Rx#:[id number] Sodium Chloride 0.9% 1, 600 900 375 000 ml @ 75 mls/hr IV . [id number] [facility] Rx#:[id number] cefTRIAXone 1 gm In 50 Sodium Chloride 0.9% 50 ml @ 100 mls/hr IVPB Q24H [facility] Rx#:[id number] Oral 500 Output: Urine 150 650 100 Stool 1 Other: # Voids 1 # Bowel Movements 1 1 1 - Exam PHYSICAL EXAMINATION: Patient is lying in the bed comfortably, no acute distress, awake alert and oriented.. HEENT: Normocephalic. Neck is supple. Pupils reactive. Nostrils clear. Oral cavity is moist. Ears reveal no drainage. Neck reveals no JVD, carotid bruits, or thyromegaly. CHEST EXAMINATION: Trachea is central. Symmetrical expansion. Bilateral coarse breath sounds. No wheezing or rhonchi. CARDIAC: Normal S1, S2 with no gallops. No murmurs ABDOMEN: Soft. Bowel sounds normal. No organomegaly. No abdominal bruits. Extremities: reveal no edema. No clubbing or cyanosis Neurologically awake, alert, oriented x3 with well-coordinated movements. No focal deficits noted Skin: No rash or skin lesions. Psychiatric: Coperative. Nonsuicidal Musculoskeletal: No joint swelling or deformity. Normal range of motion. - Labs CBC & Chem 7: 10/16/20 04:03 10/16/20 04:03 Labs: Abnormal Lab Results - Last 24 Hours (Table) 10/15/20 10/15/20 10/16/20 Range/Units 17:10 20:41 04:03 Lymphocytes # 0.4 L (1.0-4.8) k/uL D-Dimer (<0.60) mg/L FEU Chloride (98-107) mmol/L Carbon Dioxide (22-30) mmol/L BUN (9-20) mg/dL Glucose (74-99) mg/dL POC Glucose (mg/dL) 147 H 132 H (75-99) mg/dL Calcium (8.4-10.2) mg/dL Ferritin (22.0-322.0) ng/mL Lactate Dehydrogenase (313-618) U/L C-Reactive Protein (<10.0) mg/L Procalcitonin (0.02-0.09) ng/mL 10/16/20 10/16/20 10/16/20 Range/Units 04:03 04:03 04:03 Lymphocytes # (1.0-4.8) k/uL D-Dimer 1.35 H (<0.60) mg/L FEU Chloride 110 H (98-107) mmol/L Carbon Dioxide 20 L (22-30) mmol/L BUN 30 H (9-20) mg/dL Glucose 146 H (74-99) mg/dL POC Glucose (mg/dL) (75-99) mg/dL Calcium 8.2 L (8.4-10.2) mg/dL Ferritin 3295.8 H (22.0-322.0) ng/mL Lactate Dehydrogenase 2014 H (313-618) U/L C-Reactive Protein 49.7 H (<10.0) mg/L Procalcitonin 0.10 H (0.02-0.09) ng/mL 10/16/20 10/16/20 Range/Units 07:03 11:36 Lymphocytes # (1.0-4.8) k/uL D-Dimer (<0.60) mg/L FEU Chloride (98-107) mmol/L Carbon Dioxide (22-30) mmol/L BUN (9-20) mg/dL Glucose (74-99) mg/dL POC Glucose (mg/dL) 138 H 130 H (75-99) mg/dL Calcium (8.4-10.2) mg/dL Ferritin (22.0-322.0) ng/mL Lactate Dehydrogenase (313-618) U/L C-Reactive Protein (<10.0) mg/L Procalcitonin (0.02-0.09) ng/mL Microbiology - Last 24 Hours (Table) 10/14/20 21:01 Blood Culture - Preliminary Blood No Growth after 24 hours 10/14/20 20:45 Blood Culture - Preliminary Blood No Growth after 24 hours Assessment and Plan Assessment: Acute hypoxic respiratory failure secondary to COVID 19 pneumonia Elevated inflammatory markers secondary to above. Acute kidney injury with possible underlying CK D stage III Diarrhea second likely secondary to viral infection Elevated d-dimer level I.49 History of PE status post [place] filter placement in 2018 Peripheral vascular disease history Previous history of smoking DVT prophylaxis with Lovenox Plan: Patient will be continued on oxygen supplementation Continue with dexamethasone, Lovenox, multivitamins and supportive care. Started on colchicine 0.6 twice a day as well.Patient is out of window for remdesivir therapy. VQ scan was ordered due to elevated d-dimer level and acute kidney injury. low probability for PE Continue to monitor closely and further recommendations based on clinical course.Prognosis is guarded at this time. Time with Patient: Greater than 30
[2020-10-17] MEDS: LOPERAMIDE 2 MG CAP PO PRN ×2 (03:53→17:07)
[2020-10-17] MEDS: SODIUM CHLORIDE 0.9% 1,000 ML IV SCH ×2 (03:57→21:08)
[2020-10-17 04:24] LABS: Basophils % (A) 0 %; Eosinophils % (A) 0 %; HGB 15.1 gm/dL (13.0-17.5); Lymphocytes # (A) 0.4 k/uL (1.0-4.8); Lymphocytes % (A) 5 %; MCH 31.9 pg (25.0-35.0); MCHC 34.3 g/dL (31.0-37.0); MCV 92.9 fL (80.0-100.0); Mean Platelet Volume 7.9; Monocytes # (A) 0.4 k/uL (0-1.0); Monocytes % (A) 5 %; Neutrophils # (A) 7.1 k/uL (1.3-7.7); Neutrophils % (A) 89 %; Platelet Count 184 k/uL (150-450); RBC 4.73 m/uL (4.30-5.90); RDW 13.2 % (11.5-15.5)
[2020-10-17 04:43] LABS: African American GFR (CKD) >90 (>60 ml/min/1.73 sqM); Anion Gap 8 mmol/L; Blood Urea Nitrogen 27 mg/dL (9-20); C Reactive Protein 22.1 mg/L (<10.0); Calcium 8.4 mg/dL (8.4-10.2); Carbon Dioxide 20 mmol/L (22-30); Chloride 110 mmol/L (98-107); Glucose 147 mg/dL (74-99); Non-African American GFR(CKD) >90 (>60 ml/min/1.73 sqM); Potassium 3.9 mmol/L (3.5-5.1); Sodium 138 mmol/L (137-145)
[2020-10-17 04:52] LABS: LDH 2219 U/L (313-618)
[2020-10-17 06:53] LABS: Glucose,Whole Blood 125 mg/dL (75-99)
[2020-10-17] MEDS: INSULIN ASPART (NovoLOG) 100 UNIT/ML VIAL SQ SCH ×4 (06:57→21:08)
[2020-10-17] MEDS: ALBUTEROL HFA INHALER INHALATION SCH ×3 (07:32→20:57)
--- NOTE | 2020-10-17 07:37 | XR ---
EXAMINATION TYPE: XR chest 1V DATE OF EXAM: 10/17/2020 COMPARISON: 10/16/2020 INDICATION: Assess lungs TECHNIQUE: Single frontal view of the chest is obtained. FINDINGS: The heart size is mildly prominent. The pulmonary vasculature is vomiting. Mild increased lung markings are present. Correlate for volume overload IMPRESSION: 1. Clinical correlation recommended for mild volume overload
[2020-10-17] MEDS: ASCORBIC ACID 500 MG TAB PO SCH (08:01)
[2020-10-17] MEDS: ZINC SULFATE 220 MG CAP PO SCH (08:02)
[2020-10-17] MEDS: DEXAMETHASONE SOD PHOSPHATE 10 MG/ML 1 ML VIAL IV SCH (08:02)
[2020-10-17] MEDS: CHOLECALCIFEROL 25 MCG (1000 IU) TABLET PO SCH (08:02)
[2020-10-17] MEDS: COLCHICINE 0.6 MG EACH PO SCH ×2 (08:02→21:08)
[2020-10-17] MEDS: ENOXAPARIN 40 MG/0.4 ML SYRINGE SQ SCH (08:03)
[2020-10-17 10:01] LABS: Ferritin 2104.7 ng/mL (22.0-322.0)
--- NOTE | 2020-10-17 10:13 | P.PN ---
Subjective Progress Note Date: 10/17/20 Principal diagnosis: Hypoxemic respiratory failure. This is a 60-year-old white male, known previous significant medical history except for remote history of pulmonary embolism, patient was brought into the ER yesterday with multiple constitutional symptoms since October 01. Patient has been complaining of intermittent episodes of fever chills, nausea vomiting, shortness of breath, cough, fever and body aches. This has been progressively getting worse over the last 2 weeks. Describes the cough as nonproductive cough, but it is associated with significant shortness of breath. Patient had no diarrhea, no loss of sensation of taste or smell. No clear-cut history of exposure to any patient with covid19 infection. But the patient has been grocery shopping and has been going in public to have a haircut. Workup in the ER showed mild interstitial infiltrates/interstitial pneumonia, and he also tested positive for covid 19 based on PCR patient required significant amount of FiO2, he was placed on 15 L high flow nasal cannula to maintain O2 saturation in the low 90s. Hence the patient was admitted and this consult was initiated. I evaluated the patient this morning, and he was noted to be extremely short of breath, his clinical findings and his chest x-ray findings did not truly correlate with his profound hypoxia, hence I am recommending that the patient tr ansferred to the ICU, I have started the patient on the Covid 19 cocktail, I will recommend a VQ scan since his renal functioning prohibits performing a CT angiogram of the chest, and I have also recommended a venous Doppler of lower extremities. CBC was relatively normal d-dimer was 1.46. Ferritin is 2747 LDH is 2143 C-reactive protein is 69.2. Pro-calcitonin is 0.27. His inflammatory markers are significantly elevated. 10/16/2020 the patient is being seen for a follow-up. The patient remains in intensive care unit and he is having issues with his oxygenation. He was on 15 L of oxygen by nasal cannula in addition to a nonrebreather facemask and this will be transitioned to a high flow oxygen today. In terms of his inflammatory markers, his LDH level is at 2014 and the CRP is at 49.7. His numbers are improving compared to yesterday. Rest of the blood work essentially within no rmal limits. The patient's d-dimer is at 1.35 with a white cell count of 5.8. His chest x-ray from today is showing bilateral pulmonary infiltrates that are rather diffuse and a slightly worse on the left compared to the right. VQ scan came back of a low probability. Doppler of the lower extremities are also negative. The patient is currently on Lovenox 40 mg subcu for DVT prophylaxis. He is also on empiric antibiotic coverage with a combination of Rocephin and Zithromax. He remains on colchicine. He remains on Decadron 6 mg IV every 12 hours. IV fluids with normal saline at the rate of 75 mL an hour. He is tachypneic and his respiratory rate is in the mid 30s for now. Progress note dated 10/17/2020. 60-year-old male that was admitted on October 14 for COVID 19 infection. The patient came in with a lot of GI complaints but also developed pneumonia. He is currently in the intensive care unit. He is currently on AIRVO at 60 L/m, and an FiO2 of 92%. I had a conversation with the patient about CODE STATUS and intubation with mechanical ventilation. I explained what that was. He understood. He would agree to initial intubation and mechanical ventilation if it came to that, but is unsure about how long he wanted stay on the ventilator, and also is unsure as to whether or not he would want a tracheostomy and PEG tube. He wanted me to call his sister, Magi. Currently, he is also on saline at 75 mL an hour. He is quite short of breath. His respiratory rate is in the high 20s to low 30s. He was seen in consultation by my partner a couple days ago and in follow-up by other partner yesterday. His white count is 8, hemoglobin 15.1, hematocrit 44.0, and platelet count 184,000. D-dimer is 4.19. Sodium 138, potassium 3.9, chloride 110, CO2 20, anion gap 8, BUN 27, and creatinine 0.73. The patient's C-reactive protein is 22.1, LDH is 2219, and ferritin level 2105. The patient's chest x-ray does show bilateral interstitial infiltrates. Currently, the patient is on culture seen, Decadron, Rocephin, Zithromax, zinc, vitamin C, and vitamin D3. Objective - Vital Signs Vital signs: Vital Signs Temp 98.1 F 10/17/20 08:00 Pulse 69 10/17/20 09:00 Resp 30 H 10/17/20 09:00 BP 123/77 10/17/20 09:00 Pulse Ox 95 10/17/20 09:00 Intake & Output 10/16/20 10/17/20 10/17/20 18:59 06:59 18:59 Intake Total 950 1380 325 Output Total 101 451 476 Balance 849 929 -151 Weight 84.4 kg Intake: IV 825 225 Sodium Chloride 0.9% 1, 825 225 000 ml @ 75 mls/hr IV . [id number] [facility] Rx#:[id number] Intake, IV Titration 950 75 Amount Sodium Chloride 0.9% 1, 900 75 000 ml @ 75 mls/hr IV . [id number] [facility] Rx#:[id number] cefTRIAXone 1 gm In 50 Sodium Chloride 0.9% 50 ml @ 100 mls/hr IVPB Q24H [facility] Rx#:[id number] Oral 480 100 Output: Urine 100 450 475 Stool 1 1 1 Other: # Voids 1 1 # Bowel Movements 1 1 - Exam Mild to moderate respiratory distress, with use of accessory muscles, and mild conversational dyspnea. The patient is oriented 3. HEENT examination is grossly unremarkable. No oral lesions. Neck supple. Full range of motion. No adenopathy thyromegaly or neck vein distention. Cardiovascular examination reveals regular rhythm rate. S1-S2 normal. No S3 or S4. No discernible murmur noted. Heart sounds are distant. Lungs reveal bibasilar diminished breath sounds. A few scattered rhonchi and crackles are noted. No wheezes. Breath sounds are equal bilaterally. Abdomen soft bowel sounds are heard. No masses or tenderness. Extremities are intact. No cyanosis clubbing or edema. Skin is without rash or lesion. Neurologic examination is brief but nonfocal. - Labs CBC & Chem 7: 10/17/20 03:44 10/17/20 03:48 Labs: Abnormal Lab Results - Last 24 Hours (Table) 10/16/20 10/16/20 10/16/20 Range/Units 04:03 04:03 11:36 Lymphocytes # (1.0-4.8) k/uL D-Dimer (<0.60) mg/L FEU Chloride (98-107) mmol/L Carbon Dioxide (22-30) mmol/L BUN (9-20) mg/dL Glucose (74-99) mg/dL POC Glucose (mg/dL) 130 H (75-99) mg/dL Ferritin 3295.8 H (22.0-322.0) ng/mL Lactate Dehydrogenase (313-618) U/L C-Reactive Protein (<10.0) mg/L Procalcitonin 0.10 H (0.02-0.09) ng/mL 10/16/20 10/16/20 10/17/20 Range/Units 16:49 20:15 03:44 Lymphocytes # 0.4 L (1.0-4.8) k/uL D-Dimer (<0.60) mg/L FEU Chloride (98-107) mmol/L Carbon Dioxide (22-30) mmol/L BUN (9-20) mg/dL Glucose (74-99) mg/dL POC Glucose (mg/dL) 138 H 150 H (75-99) mg/dL Ferritin (22.0-322.0) ng/mL Lactate Dehydrogenase (313-618) U/L C-Reactive Protein (<10.0) mg/L Procalcitonin (0.02-0.09) ng/mL 10/17/20 10/17/20 10/17/20 Range/Units 03:44 03:48 06:51 Lymphocytes # (1.0-4.8) k/uL D-Dimer 4.19 H (<0.60) mg/L FEU Chloride 110 H (98-107) mmol/L Carbon Dioxide 20 L (22-30) mmol/L BUN 27 H (9-20) mg/dL Glucose 147 H (74-99) mg/dL POC Glucose (mg/dL) 125 H (75-99) mg/dL Ferritin (22.0-322.0) ng/mL Lactate Dehydrogenase 2219 H (313-618) U/L C-Reactive Protein 22.1 H (<10.0) mg/L Procalcitonin (0.02-0.09) ng/mL Microbiology - Last 24 Hours (Table) 10/14/20 20:45 Blood Culture - Preliminary Blood No Growth after 48 hours 10/14/20 21:01 Blood Culture - Preliminary Blood No Growth after 48 hours Assessment and Plan Assessment: Acute hypoxemic respiratory failure secondary to COVID 19 pneumonia/pneumonitis, and worsening respiratory status. Elevated inflammatory markers related to coronavirus infection. History of pulmonary embolus some, with negative repeat VQ scan and Dopplers of the lower extremities. History of peripheral vascular occlusive disease. Acute kidney injury. Prior history of tobacco use. Plan: Plan dated 10/17/2020. The patient's medications are reviewed. They seem to be appropriate. The patient may benefit from higher dose corticosteroids given his worsening hypoxemic respiratory failure. I'll DC the Decadron in favor of Solu-Medrol, 60 mg every 6 hours. I did have a conversation with the patient today about mechanical ventilation. He appears to want mechanical ventilation at this time. He is not sure about how long he would want to be on life support, and he is not sure whether or not he would want a tracheostomy and PEG tube placement should come to that. Additional recommendations and suggestions are forthcoming. Prognosis is guarded. Time with Patient: Greater than 30
[2020-10-17] MEDS: methylPREDNISolone SOD SUCCI 125 MG/2 ML VIAL IV SCH ×3 (11:32→23:25)
[2020-10-17 11:33] LABS: Glucose,Whole Blood 119 mg/dL (75-99)
[2020-10-17] MEDS: AZITHROMYCIN 250 MG TAB PO SCH (15:53)
--- NOTE | 2020-10-17 18:25 | PN ---
PROGRESS NOTE DATE OF SERVICE: 10/17/2020 REASON FOR FOLLOWUP: COVID-19 pneumonia. INTERVAL HISTORY: The patient is currently afebrile. Patient is breathing slightly comfortably. The patient's cough has slightly decreased in intensity, not bringing any sputum. No chest pain. No abdominal pain. Diarrhea has improved. PHYSICAL EXAMINATION: Blood pressure 135/74 with a pulse of 73, temperature 98. He is 94% on high-flow oxygen. General description is a middle-aged male up in the chair in no distress. RESPIRATORY SYSTEM: Unlabored breathing. Diminished breath sounds. A few rhonchi. HEART: S1, S2. Regular rate and rhythm. ABDOMEN: Soft. No tenderness. EXTREMITIES: No edema of the feet. LABS: Hemoglobin is 15.1, white count 8.0, BUN of 27, creatinine 0.73. Blood culture has been negative. Chest x-ray shows mild volume overload. DIAGNOSTIC IMPRESSION AND PLAN: Patient with acute respiratory failure. Source is likely acute COVID-19 pneumonia in this patient who is currently covered with Solu-Medrol, Lovenox, colchicine and zinc; to continue along with empiric antibiotic in view of his elevated Procalcitonin . Monitor his clinical course closely. MMODL / IJN: [id number] /
[2020-10-17] MEDS: SYMBICORT 160-4.5 MCG INHALER INHALATION SCH ×3 (20:58→21:41)
[2020-10-17 21:03] LABS: Glucose,Whole Blood 145 mg/dL (75-99)
--- NOTE | 2020-10-17 23:51 | P.PN ---
Subjective Patient is a 60-year-old male with a known history of pulmonary embolism status post [place] filter in 2007 and previous history of smoking presents to ER with the complaints of shortness of breath, cough without sputum production, fever and generalized body aches. Patient says that he initially had abdominal discomfort and diarrhea which was resolved about 2 weeks ago. Patient has been having progressively worsening symptoms. Denied any chest pain. Denied any sick contacts are recent travel. Denied any leg swelling. Chest x-ray showed mild pulmonary infiltrate interstitial edema. Borderline cardiac regular. Appearance could relate to mild acute heart failure doubt acute interstitial pneumonia. EKG showed normal sinus rhythm next and laboratory data in the ER showed WBC 3.8, hemoglobin 17.8 and platelets 168 lymphocytes 0.7 and d-dimer 1.46 Sodium 135 potassium 3.9 BUN 43 and creatinine 1.66 lactic acid 2.1 on admission Ferritin 2747.5, AST 74-year-old is 57 LDH 2143 and CRP 69.2 and pro calcitonin level is 0.2 [address]. T-max was 99.9 on admission and patient was saturating at 83% on room air and tachypneic with respiratory rate 28 and tachycardic on admission. 10/16/2020 Patient is currently in the MICU. on Airvo 60 percent and is saturating at 96%. Patient is having diarrhea. Continued on IV hydration. Tolerating oral diet. Inflammatory markers are trending down slowly. Continue Decadron and Lovenox. Chest x-ray showed scattered interstitial infiltrates persist unchanged. Patient has been afebrile. Bilateral lower extremity duplex scan is negative for DVT at VQ scan is low probability for PE patient is being continued Lovenox 40 mg subcu daily. Also on empiric antibiotics of ceftriaxone and azithromycin. Pulmonary is following. Subjective: 10/17/2020 This is a pleasant 68 years old male was admitted to the ICU with acute respiratory failure secondary to cough with pneumonia with possible superimposed bacterial infection, currently he remains intubated and sedated with p ulmonary/critical care team are following him very closely and to help with vent management CBC and BMP looks stable, inflammatory markers are still elevated. Chest x-ray: Bilateral infiltrate He remains on ceftriaxone and Zithromax, Lovenox 40 mg daily, Solu-Medrol 60 mg, and normal saline at 75 mL per as well as zinc and vitamin C pulmonary and infectious disease team on the case Review of systems: N/a Active Medications Generic Name Dose Route Start Last Admin Trade Name Freq PRN Reason Stop Dose Admin Acetaminophen 650 mg 10/14/20 23:50 Acetaminophen Tab 325 Mg Tab PO Q4HR PRN Fever and/ or Pain Albuterol Sulfate 1 puff 10/15/20 08:00 10/17/20 20:57 Albuterol Hfa Inhaler INHALATION 1 puff RT-TID [facility] Administration Albuterol Sulfate 1 puff 10/15/20 05:18 10/16/20 15:43 Albuterol Hfa Inhaler INHALATION 1 puff RT-TID PRN Administration Shortness Of Breath Or Wheezing Ascorbic Acid 1,000 mg 10/15/20 10:15 10/17/20 08:01 Ascorbic Acid 500 Mg Tab PO 1,000 mg DAILY [facility] Administration Azithromycin 250 mg 10/16/20 16:00 10/17/20 15:53 Azithromycin 250 Mg Tab PO 250 mg Q24H [facility] Administration Budesonide/Formoterol Fumarate 2 puff 10/17/20 20:00 10/17/20 21:41 Symbicort 160-4.5 Mcg Inhaler INHALATION Not Given RT-BID [facility] Cholecalciferol 25 mcg 10/15/20 10:15 10/17/20 08:02 Cholecalciferol 25 Mcg (1000 Iu) Tablet PO 25 mcg DAILY [facility] Administration Colchicine 0.6 mg 10/15/20 10:15 10/17/20 21:08 Colchicine 0.6 Mg Each PO 0.6 mg BID [facility] Administration Enoxaparin Sodium 40 mg 10/16/20 09:00 10/17/20 08:03 Enoxaparin 40 Mg/0.4 Ml Syringe SQ 40 mg DAILY [facility] Administration Sodium Chloride 1,000 mls @ 75 mls/hr 10/14/20 23:45 10/17/20 21:08 Saline 0.9% IV 75 mls/hr .[id number] [facility] Administration Ceftriaxone Sodium 1 gm/ 50 mls @ 100 mls/hr 10/15/20 18:00 10/17/20 17:02 Sodium Chloride IVPB 100 mls/hr Q24H [facility] Administration Insulin Aspart 0 unit 10/15/20 07:30 10/17/20 21:08 Insulin Aspart (Novolog) 100 Unit/Ml Vial SQ 2 unit ACHS [facility] Administration Protocol Loperamide HCl 2 mg 10/15/20 16:50 10/17/20 17:07 Loperamide 2 Mg Cap PO 2 mg QID PRN Administration Diarrhea Methylprednisolone Sodium Succinate 60 mg 10/17/20 12:00 10/17/20 23:25 Methylprednisolone Sod Succi 125 Mg/2 Ml Vial IV 60 mg Q6HR [facility] Administration Naloxone HCl 0.2 mg 10/14/20 21:48 Naloxone 0.4 Mg/Ml 1 Ml Vial IV Q2M PRN Opioid Reversal Zinc Sulfate 220 mg 10/15/20 10:15 10/17/20 08:02 Zinc Sulfate 220 Mg Cap PO 220 mg DAILY [facility] Administration Objective - Vital Signs Vital signs: Vital Signs Temp 98.1 F 10/17/20 08:00 Pulse 69 10/17/20 09:00 Resp 30 H 10/17/20 09:00 BP 123/77 10/17/20 09:00 Pulse Ox 95 10/17/20 09:00 Intake & Output 10/16/20 10/17/20 10/17/20 18:59 06:59 18:59 Intake Total 950 1380 200 Output Total 101 451 150 Balance 849 929 50 Weight 84.4 kg Intake: IV 825 150 Sodium Chloride 0.9% 1, 825 150 000 ml @ 75 mls/hr IV . [id number] [facility] Rx#:[id number] Intake, IV Titration 950 75 Amount Sodium Chloride 0.9% 1, 900 75 000 ml @ 75 mls/hr IV . [id number] [facility] Rx#:[id number] cefTRIAXone 1 gm In 50 Sodium Chloride 0.9% 50 ml @ 100 mls/hr IVPB Q24H [facility] Rx#:[id number] Oral 480 50 Output: Urine 100 450 150 Stool 1 1 Other: # Voids 1 1 # Bowel Movements 1 1 - Exam -GENERAL: The patient is intubated and sedated HEENT: Pupils are round and equally reacting to light. EOMI. No scleral icterus. No conjunctival pallor. Normocephalic, atraumatic. No pharyngeal erythema. No thyromegaly. CARDIOVASCULAR: S1 and S2 present. No murmurs, rubs, or gallops. -PULMONARY: Chest is clear to auscultation, bilateral coarse crepitation and decreased breath sounds ABDOMEN: Soft, nontender, nondistended, normoactive bowel sounds. No palpable organomegaly. MUSCULOSKELETAL: No joint swelling or deformity. EXTREMITIES: No cyanosis, clubbing, or pedal edema. NEUROLOGICAL: Gross neurological examination did not reveal any focal deficits. SKIN: No rashes. no petechiae. - Labs CBC & Chem 7: 10/17/20 03:44 10/17/20 03:48 Labs: Abnormal Lab Results - Last 24 Hours (Table) 10/16/20 10/16/20 10/16/20 Range/Units 04:03 04:03 11:36 Lymphocytes # (1.0-4.8) k/uL D-Dimer (<0.60) mg/L FEU Chloride (98-107) mmol/L Carbon Dioxide (22-30) mmol/L BUN (9-20) mg/dL Glucose (74-99) mg/dL POC Glucose (mg/dL) 130 H (75-99) mg/dL Ferritin 3295.8 H (22.0-322.0) ng/mL Lactate Dehydrogenase (313-618) U/L C-Reactive Protein (<10.0) mg/L Procalcitonin 0.10 H (0.02-0.09) ng/mL 10/16/20 10/16/20 10/17/20 Range/Units 16:49 20:15 03:44 Lymphocytes # 0.4 L (1.0-4.8) k/uL D-Dimer (<0.60) mg/L FEU Chloride (98-107) mmol/L Carbon Dioxide (22-30) mmol/L BUN (9-20) mg/dL Glucose (74-99) mg/dL POC Glucose (mg/dL) 138 H 150 H (75-99) mg/dL Ferritin (22.0-322.0) ng/mL Lactate Dehydrogenase (313-618) U/L C-Reactive Protein (<10.0) mg/L Procalcitonin (0.02-0.09) ng/mL 10/17/20 10/17/20 10/17/20 Range/Units 03:44 03:48 06:51 Lymphocytes # (1.0-4.8) k/uL D-Dimer 4.19 H (<0.60) mg/L FEU Chloride 110 H (98-107) mmol/L Carbon Dioxide 20 L (22-30) mmol/L BUN 27 H (9-20) mg/dL Glucose 147 H (74-99) mg/dL POC Glucose (mg/dL) 125 H (75-99) mg/dL Ferritin (22.0-322.0) ng/mL Lactate Dehydrogenase 2219 H (313-618) U/L C-Reactive Protein 22.1 H (<10.0) mg/L Procalcitonin (0.02-0.09) ng/mL Microbiology - Last 24 Hours (Table) 10/14/20 20:45 Blood Culture - Preliminary Blood No Growth after 48 hours 10/14/20 21:01 Blood Culture - Preliminary Blood No Growth after 48 hours Assessment and Plan Assessment: Acute hypoxic respiratory failure secondary to bilateral COVID 19 pneumonia Elevated inflammatory markers secondary to above. Acute kidney injury, resolved Diarrhea second likely secondary to viral infection, improving Elevated d-dimer level I.49 History of PE status post [employer] filter placement in 2018 Peripheral vascular disease history Previous history of smoking Plan: This is a pleasant 60 years old male who presents with bilateral cold fluid. Continue with mechanical ventilation. Pulmonary/critical care team. Continue with broad-spectrum antibiotics with ceftriaxone and Zithromax. Continue with zinc and vitamin C. Also he is on Lovenox. Continue with steroids Follow-up recommendation by infectious disease team Labs and medication were reviewed.. Continue same treatment. Continue with symptomatic treatment. Resume home medication. Monitor lytes and vitals. DVT and GI prophylaxis. Further recommendationsas per clinical course of the patient DVT prophylaxis: Subcutaneous Lovenox GI Prophylaxis: Pepcid Prognosis is guarded
[2020-10-18] MEDS: LOPERAMIDE 2 MG CAP PO PRN ×2 (00:25→18:15)
[2020-10-18] MEDS: FAMOTIDINE 20 MG/2 ML VIAL IV SCH ×3 (00:26→20:35)
[2020-10-18 04:30] LABS: Basophils % (A) 0 %; Eosinophils % (A) 0 %; HCT 44.8 % (39.0-53.0); HGB 15.1 gm/dL (13.0-17.5); Lymphocytes # (A) 0.4 k/uL (1.0-4.8); Lymphocytes % (A) 4 %; MCH 30.8 pg (25.0-35.0); MCHC 33.7 g/dL (31.0-37.0); MCV 91.5 fL (80.0-100.0); Mean Platelet Volume 7.7; Monocytes # (A) 0.4 k/uL (0-1.0); Monocytes % (A) 4 %; Neutrophils % (A) 90 %; Platelet Count 117 k/uL (150-450); RDW 13.7 % (11.5-15.5)
[2020-10-18] MEDS ORDERED: QUEtiapine 25 MG TAB PO STA (04:31)
[2020-10-18] MEDS: methylPREDNISolone SOD SUCCI 125 MG/2 ML VIAL IV SCH ×3 (04:45→17:30)
[2020-10-18 05:02] LABS: ALT 205 U/L (4-49); AST 173 U/L (17-59); African American GFR (CKD) >90 (>60 ml/min/1.73 sqM); Albumin 3.3 g/dL (3.5-5.0); Alkaline Phosphatase 187 U/L (38-126); Anion Gap 9 mmol/L; Blood Urea Nitrogen 24 mg/dL (9-20); C Reactive Protein 14.5 mg/L (<10.0); Calcium 8.3 mg/dL (8.4-10.2); Carbon Dioxide 22 mmol/L (22-30); Chloride 106 mmol/L (98-107); Creatine Kinase 218 U/L (55-170); Glucose 135 mg/dL (74-99); Non-African American GFR(CKD) >90 (>60 ml/min/1.73 sqM); Potassium 3.4 mmol/L (3.5-5.1); Sodium 137 mmol/L (137-145); Total Bilirubin 1.2 mg/dL (0.2-1.3); Total Protein 5.6 g/dL (6.3-8.2)
[2020-10-18 05:20] LABS: LDH 3287 U/L (313-618)
[2020-10-18] MEDS ORDERED: NITROGLYCERIN OINT 1 INCH/GM PACKET TOPICAL STA (05:36)
[2020-10-18] MEDS ORDERED: HEPARIN SOD,PORK IN 0.45% NACL 25,000 UNIT in 0.45% NACL 1 250ML.BAG IV SCH (05:45)
[2020-10-18 06:08] LABS: Fibrinogen 256 mg/dL (200-500)
[2020-10-18 06:16] LABS: D-Dimer >34.10 mg/L FEU (<0.60)
[2020-10-18] MEDS ORDERED: ASPIRIN 325 MG TAB PO STA (06:56)
[2020-10-18] MEDS ORDERED: ATORVASTATIN 80 MG TAB PO STA (06:56)
[2020-10-18] MEDS ORDERED: SODIUM CHLORIDE 0.9% 1,000 ML in EMPTY BAG 1 BAG IV ONE (06:56)
[2020-10-18] MEDS ORDERED: NITROGLYCERIN SL TABS 0.4 MG TAB SUBLINGUAL PRN (06:56)
[2020-10-18] MEDS ORDERED: ALPRAZolam 0.25 MG TAB PO PRN (06:56)
--- NOTE | 2020-10-18 07:16 | XR ---
EXAMINATION TYPE: XR chest 1V DATE OF EXAM: 10/18/2020 CLINICAL HISTORY: Difficulty breathing progress study. TECHNIQUE: Single AP portable semiupright view of the chest is obtained. COMPARISON: Chest x-ray from one day earlier and older studies through October 14. FINDINGS: Stable mild cardiomegaly. Persistent bilateral mid to lower lung reticulonodular opacities more prominent from initial studies. Upper lungs remain clear. Osseous structures are intact. IMPRESSION: Cardiomegaly with bilateral lower lung reticulonodular acute infiltrates, correlate for a typical infection. No significant change from most recent x-ray.
[2020-10-18] MEDS ORDERED: LIDOCAINE 1% INJ 10MG/ML (20 ML MDV) SQ ONE (07:45)
[2020-10-18] MEDS ORDERED: VERAPAMIL SYRINGE (5 MG/10 ML) INTRAARTER ONE (07:47)
[2020-10-18] MEDS ORDERED: IV FLUID CONTINUATION 1,000 ML IV ONE (07:47)
[2020-10-18] MEDS: SYMBICORT 160-4.5 MCG INHALER INHALATION SCH ×2 (07:51→19:30)
[2020-10-18] MEDS: ALBUTEROL HFA INHALER INHALATION SCH ×3 (07:51→19:30)
[2020-10-18] MEDS ORDERED: NITROGLYCERIN 1000MCG/10ML SYRINGE INTRACORON ONE (07:52)
[2020-10-18] MEDS ORDERED: HEPARIN SODIUM 1,000 UN/ML (10ML VL) ONE (07:53)
[2020-10-18] MEDS ORDERED: HEPARIN SODIUM 1,000 UN/ML (10ML VL) IV ONE (07:54)
[2020-10-18] MEDS ORDERED: IOPAMIDOL-370 125ML BTL INJ ONE (07:58)
[2020-10-18] MEDS ORDERED: CLOPIDOGREL 75 MG TAB ONE (08:01)
[2020-10-18] MEDS ORDERED: CLOPIDOGREL 75 MG TAB PO ONE (08:02)
[2020-10-18] MEDS ORDERED: IOPAMIDOL-370 100ML BTL INJ ONE (08:03)
[2020-10-18] MEDS: INSULIN ASPART (NovoLOG) 100 UNIT/ML VIAL SQ SCH ×4 (08:11→20:35)
[2020-10-18] MEDS ORDERED: RX INFO: IV CONTRAST WAS GIVEN 1 EACH MISC MISCELLANE PRN (08:15)
[2020-10-18] MEDS ORDERED: SODIUM CHLORIDE 0.9% 1,000 ML IV SCH (08:15)
[2020-10-18] MEDS ORDERED: HEPARIN SODIUM,PORCINE 5,000 UNIT/ML 1 ML VIAL IV PRN (08:17)
[2020-10-18] MEDS: SODIUM CHLORIDE 0.9% 1,000 ML IV SCH ×2 (08:30→20:36)
[2020-10-18 08:52] LABS: Cholesterol 180 mg/dL (<200); HDL Cholesterol 37 mg/dL (40-60); INR 1.3 (<1.2); LDL Cholesterol,Calculated 112 mg/dL (0-99); Partial Thromboplastin Time 87.3 sec (22.0-30.0); Prothrombin Time 13.5 sec (9.0-12.0); Triglycerides 155 mg/dL (<150)
[2020-10-18 08:55] LABS: Basophils # (A) 0.1 k/uL (0-0.2); Basophils % (A) 1 %; Eosinophils # (A) 0.1 k/uL (0-0.7); Eosinophils % (A) 1 %; HCT 41.9 % (39.0-53.0); HGB 13.7 gm/dL (13.0-17.5); Lymphocytes # (A) 0.3 k/uL (1.0-4.8); Lymphocytes % (A) 3 %; MCH 30.3 pg (25.0-35.0); MCHC 32.7 g/dL (31.0-37.0); MCV 92.7 fL (80.0-100.0); Mean Platelet Volume 7.3; Monocytes # (A) 0.4 k/uL (0-1.0); Monocytes % (A) 4 %; Neutrophils # (A) 8.9 k/uL (1.3-7.7); Neutrophils % (A) 90 %; RBC 4.52 m/uL (4.30-5.90); RDW 13.7 % (11.5-15.5); WBC 9.9 k/uL (3.8-10.6)
[2020-10-18] MEDS ORDERED: SPIRONOLACTONE 25 MG TAB PO SCH (09:00)
[2020-10-18] MEDS ORDERED: CLOPIDOGREL 75 MG TAB PO SCH (09:00)
[2020-10-18] MEDS ORDERED: ATORVASTATIN 40 MG TAB PO SCH (09:00)
[2020-10-18 09:26] LABS: Platelet Count 95 k/uL (150-450)
--- NOTE | 2020-10-18 09:29 | CONS ---
CONSULTATION Mr. Louie is a 60-year-old male who was admitted to the hospital on the 14 of October with symptoms of dyspnea and evidence of COVID-19 pneumonia. Cardiology consultation was requested because of ST-segment elevation anteriorly consistent with an acute anterior myocardial infarction. The patient has been having continuous dyspnea on exertion related to his pneumonia, but early this morning started to complain of chest discomfort with diaphoresis. He continues to have the discomfort. He has no prior history of cardiac disease. He denies any history of diabetes or hypertension. There is questionable history of peripheral vascular disease, although the patient is quite dyspneic and not able to answer the question fully. He is in sinus mechanism prior to this episode this morning. He denies any prior history of chest discomfort. He denies any knowledge of cardiac disease. He has no history of PND, orthopnea, or peripheral edema. He carries diagnosis of right pulmonary embolism and on presentation he had renal function abnormality that improved. On admission, he was on aspirin and Plavix. REVIEW OF SYSTEMS: RESPIRATORY SYSTEM: Remarkable for the dyspnea on exertion related to his pneumonia. GI SYSTEM: There is no history of nausea and vomiting. No GI bleeding. SYSTEM: No dysuria or hematuria. NERVOUS SYSTEM: No history of stroke or seizure. PHYSICAL EXAMINATION: He is a 60-year-old male, tachypneic on high-flow oxygen with the blood pressure running in the 150s with the heart rate in the low 100s, sinus tachycardia. HEAD: Normocephalic. EYES: Sclerae anicteric. NECK: No bruit. LUNGS: Clear to auscultation anteriorly. HEART: Tachycardic. S1, S2. Plus S4 and a systolic murmur. No rub. ABDOMEN: Soft, nontender. Positive bowel sounds. No organomegaly. EXTREMITIES: No edema. Intact distal pulses. LAB DATA: Lab data revealed a BUN and creatinine 24 and 0.69, potassium 3.4, hemoglobin 15.1. His LDH is 3207. C-reactive protein of 14.5. His EKG is consistent with ST-segment elevation with acute anterior myocardial infarction. IMPRESSION: 1. Acute anterior myocardial infarction. 2. Evidence of COVID-19 pneumonitis with significant dyspnea and hypoxemia. 3. Prior history of pulmonary embolism with no evidence of acute pulmonary embolism. There is low probability for pulmonary embolism on V/Q scan. 4. History of peripheral vascular disease, although details not available. RECOMMENDATION: In view of the finding and the presentation, I recommend proceeding with emergent cardiac catheterization. The rationale behind the procedure, as well as the risks and the complications were discussed with the patient who is in full understanding and agreement. I discussed with the patient that he may require mechanical ventilation. Thank you for this consult. We will follow with you. PETE / KRISHNA: [id number] /
--- NOTE | 2020-10-18 10:27 | P.PN ---
Subjective Progress Note Date: 10/18/20 Principal diagnosis: Hypoxemic respiratory failure. This is a 60-year-old white male, known previous significant medical history except for remote history of pulmonary embolism, patient was brought into the ER yesterday with multiple constitutional symptoms since October 01. Patient has been complaining of intermittent episodes of fever chills, nausea vomiting, shortness of breath, cough, fever and body aches. This has been progressively getting worse over the last 2 weeks. Describes the cough as nonproductive cough, but it is associated with significant shortness of breath. Patient had no diarrhea, no loss of sensation of taste or smell. No clear-cut history of exposure to any patient with covid19 infection. But the patient has been grocery shopping and has been going in public to have a haircut. Workup in the ER showed mild interstitial infiltrates/interstitial pneumonia, and he also tested positive for covid 19 based on PCR patient required significant amount of FiO2, he was placed on 15 L high flow nasal cannula to maintain O2 saturation in the low 90s. Hence the patient was admitted and this consult was initiated. I evaluated the patient this morning, and he was noted to be extremely short of breath, his clinical findings and his chest x-ray findings did not truly correlate with his profound hypoxia, hence I am recommending that the patient tr ansferred to the ICU, I have started the patient on the Covid 19 cocktail, I will recommend a VQ scan since his renal functioning prohibits performing a CT angiogram of the chest, and I have also recommended a venous Doppler of lower extremities. CBC was relatively normal d-dimer was 1.46. Ferritin is 2747 LDH is 2143 C-reactive protein is 69.2. Pro-calcitonin is 0.27. His inflammatory markers are significantly elevated. 10/16/2020 the patient is being seen for a follow-up. The patient remains in intensive care unit and he is having issues with his oxygenation. He was on 15 L of oxygen by nasal cannula in addition to a nonrebreather facemask and this will be transitioned to a high flow oxygen today. In terms of his inflammatory markers, his LDH level is at 2014 and the CRP is at 49.7. His numbers are improving compared to yesterday. Rest of the blood work essentially within no rmal limits. The patient's d-dimer is at 1.35 with a white cell count of 5.8. His chest x-ray from today is showing bilateral pulmonary infiltrates that are rather diffuse and a slightly worse on the left compared to the right. VQ scan came back of a low probability. Doppler of the lower extremities are also negative. The patient is currently on Lovenox 40 mg subcu for DVT prophylaxis. He is also on empiric antibiotic coverage with a combination of Rocephin and Zithromax. He remains on colchicine. He remains on Decadron 6 mg IV every 12 hours. IV fluids with normal saline at the rate of 75 mL an hour. He is tachypneic and his respiratory rate is in the mid 30s for now. Progress note dated 10/17/2020. 60-year-old male that was admitted on October 14 for COVID 19 infection. The patient came in with a lot of GI complaints but also developed pneumonia. He is currently in the intensive care unit. He is currently on AIRVO at 60 L/m, and an FiO2 of 92%. I had a conversation with the patient about CODE STATUS and intubation with mechanical ventilation. I explained what that was. He understood. He would agree to initial intubation and mechanical ventilation if it came to that, but is unsure about how long he wanted stay on the ventilator, and also is unsure as to whether or not he would want a tracheostomy and PEG tube. He wanted me to call his sister, Magi. Currently, he is also on saline at 75 mL an hour. He is quite short of breath. His respiratory rate is in the high 20s to low 30s. He was seen in consultation by my partner a couple days ago and in follow-up by other partner yesterday. His white count is 8, hemoglobin 15.1, hematocrit 44.0, and platelet count 184,000. D-dimer is 4.19. Sodium 138, potassium 3.9, chloride 110, CO2 20, anion gap 8, BUN 27, and creatinine 0.73. The patient's C-reactive protein is 22.1, LDH is 2219, and ferritin level 2105. The patient's chest x-ray does show bilateral interstitial infiltrates. Currently, the patient is on culture seen, Decadron, Rocephin, Zithromax, zinc, vitamin C, and vitamin D3. Progress note dated 10/18/2020. 60-year-old male that was admitted on October 14 for COVID 19 infection. The patient initially came in with GI complaints, but also developed pneumonia/pneumonitis. He remains in the intensive care unit. He is currently on the AIRVO at 60 L/m with an FiO2 between 90-92%. He is getting saline at 85 mL an hour, and a heparin drip via weightbase protocol. He developed ST segment elevation, and went to the catheterization laboratory. There is no obstruction that could be remedied with a stent, and the patient came back to the intensive care unit. An echocardiogram was ordered but has not yet been interpreted. I did speak to the insurance case manager about the patient. I had a conversation with the patient yesterday about CODE STATUS and he did agree to go on life support if necessary. Also, unfortunately, the patient developed a pulseless left foot. Vascular surgery was consulted. The patient's overall prognosis remains poor. He is quite short of breath. White count is 9.9, hemoglobin 13.7, hematocrit 41.9, and platelet count 95,000. His PT was 13.5, INR 1.3, and PTT 87.3. D- dimer was 34.10. Sodium 137, potassium 3.4, chlorides 106, and CO2 22. Anion g ap is normal. BUN 24, and creatinine 0.69. AST was 173 ALT 205, LDH was 3287. Troponins were 6.570 and 22.800. Chest x-ray shows cardiomegaly, with bilateral lower lung reticular nodular infiltrates, consistent with his coronavirus infection. Objective - Vital Signs Vital signs: Vital Signs Temp 98.5 F 10/18/20 08:25 Pulse 106 H 10/18/20 10:00 Resp 27 H 10/18/20 10:00 BP 126/66 10/18/20 10:00 Pulse Ox 95 10/18/20 10:00 Intake & Output 10/17/20 10/18/20 10/18/20 18:59 06:59 18:59 Intake Total 1500 900 265 Output Total 601 500 350 Balance 899 400 -85 Weight 85.1 kg Intake: IV 900 900 265 Sodium Chloride 0.9% 1, 900 900 160 000 ml @ 75 mls/hr IV . [id number] [facility] Rx#:[id number] Sodium Chloride 0.9% 1, 85 000 ml In Empty Bag 1 bag @ 1 ML/KG/HR 85.1 mls/hr IV .[id number] Rx#: [id number] Oral 600 Output: Urine 600 500 350 Stool 1 Other: # Voids 1 1 # Bowel Movements 1 1 - Exam Mild to moderate respiratory distress, with use of accessory muscles, and mild conversational dyspnea. The patient is oriented 3. HEENT examination is grossly unremarkable. No oral lesions. Neck supple. Full range of motion. No adenopathy thyromegaly or neck vein distention. Cardiovascular examination reveals regular rhythm rate. S1-S2 normal. No S3 or S4. No discernible murmur noted. Heart sounds are distant. Heart rates 106 bpm. Lungs reveal bibasilar rhonchi and crackles. No wheezes. Breath sounds equal bilaterally. Breath sounds are diminished throughout. Abdomen soft bowel sounds are heard. No masses or tenderness. Extremities are intact. No cyanosis clubbing or edema. Skin is without rash or lesion. Neurologic examination is brief but nonfocal. - Labs CBC & Chem 7: 10/18/20 08:28 10/18/20 03:53 Labs: Abnormal Lab Results - Last 24 Hours (Table) 10/17/20 10/17/20 10/17/20 Range/Units 03:44 11:32 21:01 Plt Count (150-450) k/uL Neutrophils # (1.3-7.7) k/uL Lymphocytes # (1.0-4.8) k/uL PT (9.0-12.0) sec INR (<1.2) APTT (22.0-30.0) sec D-Dimer (<0.60) mg/L FEU Potassium (3.5-5.1) mmol/L BUN (9-20) mg/dL Glucose (74-99) mg/dL POC Glucose (mg/dL) 119 H 145 H (75-99) mg/dL Calcium (8.4-10.2) mg/dL AST (17-59) U/L ALT (4-49) U/L Alkaline Phosphatase (38-126) U/L Lactate Dehydrogenase (313-618) U/L Creatine Kinase (55-170) U/L Troponin I (0.000-0.034) ng/mL C-Reactive Protein (<10.0) mg/L Total Protein (6.3-8.2) g/dL Albumin (3.5-5.0) g/dL Triglycerides (<150) mg/dL LDL Cholesterol, Calc (0-99) mg/dL HDL Cholesterol (40-60) mg/dL Procalcitonin 0.10 H (0.02-0.09) ng/mL 10/18/20 10/18/20 10/18/20 Range/Units 03:53 03:53 03:53 Plt Count 117 L (150-450) k/uL Neutrophils # 9.0 H (1.3-7.7) k/uL Lymphocytes # 0.4 L (1.0-4.8) k/uL PT (9.0-12.0) sec INR (<1.2) APTT (22.0-30.0) sec D-Dimer >34.10 H (<0.60) mg/L FEU Potassium 3.4 L (3.5-5.1) mmol/L BUN 24 H (9-20) mg/dL Glucose 135 H (74-99) mg/dL POC Glucose (mg/dL) (75-99) mg/dL Calcium 8.3 L (8.4-10.2) mg/dL AST 173 H (17-59) U/L ALT 205 H (4-49) U/L Alkaline Phosphatase 187 H (38-126) U/L Lactate Dehydrogenase 3287 H (313-618) U/L Creatine Kinase 218 H (55-170) U/L Troponin I (0.000-0.034) ng/mL C-Reactive Protein 14.5 H (<10.0) mg/L Total Protein 5.6 L (6.3-8.2) g/dL Albumin 3.3 L (3.5-5.0) g/dL Triglycerides (<150) mg/dL LDL Cholesterol, Calc (0-99) mg/dL HDL Cholesterol (40-60) mg/dL Procalcitonin (0.02-0.09) ng/mL 10/18/20 10/18/20 10/18/20 Range/Units 06:06 08:28 08:28 Plt Count 95 L (150-450) k/uL Neutrophils # 8.9 H (1.3-7.7) k/uL Lymphocytes # 0.3 L (1.0-4.8) k/uL PT 13.5 H (9.0-12.0) sec INR 1.3 H (<1.2) APTT 87.3 H (22.0-30.0) sec D-Dimer (<0.60) mg/L FEU Potassium (3.5-5.1) mmol/L BUN (9-20) mg/dL Glucose (74-99) mg/dL POC Glucose (mg/dL) (75-99) mg/dL Calcium (8.4-10.2) mg/dL AST (17-59) U/L ALT (4-49) U/L Alkaline Phosphatase (38-126) U/L Lactate Dehydrogenase (313-618) U/L Creatine Kinase (55-170) U/L Troponin I 6.570 H* (0.000-0.034) ng/mL C-Reactive Protein (<10.0) mg/L Total Protein (6.3-8.2) g/dL Albumin (3.5-5.0) g/dL Triglycerides (<150) mg/dL LDL Cholesterol, Calc (0-99) mg/dL HDL Cholesterol (40-60) mg/dL Procalcitonin (0.02-0.09) ng/mL 10/18/20 10/18/20 Range/Units 08:28 08:28 Plt Count (150-450) k/uL Neutrophils # (1.3-7.7) k/uL Lymphocytes # (1.0-4.8) k/uL PT (9.0-12.0) sec INR (<1.2) APTT (22.0-30.0) sec D-Dimer (<0.60) mg/L FEU Potassium (3.5-5.1) mmol/L BUN (9-20) mg/dL Glucose (74-99) mg/dL POC Glucose (mg/dL) (75-99) mg/dL Calcium (8.4-10.2) mg/dL AST (17-59) U/L ALT (4-49) U/L Alkaline Phosphatase (38-126) U/L Lactate Dehydrogenase (313-618) U/L Creatine Kinase (55-170) U/L Troponin I 22.800 H* (0.000-0.034) ng/mL C-Reactive Protein (<10.0) mg/L Total Protein (6.3-8.2) g/dL Albumin (3.5-5.0) g/dL Triglycerides 155 H (<150) mg/dL LDL Cholesterol, Calc 112 H (0-99) mg/dL HDL Cholesterol 37 L (40-60) mg/dL Procalcitonin (0.02-0.09) ng/mL Microbiology - Last 24 Hours (Table) 10/14/20 20:45 Blood Culture - Preliminary Blood No Growth after 72 hours 10/14/20 21:01 Blood Culture - Preliminary Blood No Growth after 72 hours Assessment and Plan Assessment: Acute hypoxemic respiratory failure secondary to COVID 19 pneumonia/pneumonitis, and worsening respiratory status. ST segment elevation myocardial infarction, possibly related to acute thrombosis. Pulseless left foot, likely related to embolic event. Vascular surgery consulted. Elevated inflammatory markers related to coronavirus infection. History of pulmonary embolus some, with negative repeat VQ scan and Dopplers of the lower extremities. History of peripheral vascular occlusive disease. Acute kidney injury. Prior history of tobacco use. Plan: Plan dated 10/18/2020. The patient went to the catheterization laboratory this morning and was not found to have any obstructive coronary disease. Cupola Patcher believes that the ST segment elevation myocardial infarction likely related to acute thrombosis. The patient's currently on IV heparin. In addition, the patient developed a pulseless left foot. Vascular surgery was consulted. His overall prognosis remains guarded. Remains on AIRVO at 60 L/m, and 90% FiO2. He's currently on a heparin drip. Echocardiogram has been ordered and is pending. Additional recommendations and suggestions are forthcoming. We will continue to follow and make recommendations were appropriate. The patient's chest x-ray continues to show diffuse patchy bilateral infiltrates, consistent with coronavirus infection and his oxygenation has not improved. Time with Patient: Greater than 30
--- NOTE | 2020-10-18 10:39 | ECHOF ---
Referral Reason:mi MEASUREMENTS -------- HEIGHT: 170.2 cm WEIGHT: 84.4 kg BP: 150/88 RVIDd: 3.4 cm (< 3.3) IVSd: 1.2 cm (0.6 - 1.1) LVIDd: 4.2 cm (3.9 - 5.3) LVPWd: 1.1 cm (0.6 - 1.1) IVSs: 1.3 cm LVIDs: 3.1 cm LVPWs: 1.4 cm LA Diam: 3.5 cm (2.7 - 3.8) Ao Diam: 3.0 cm (2.0 - 3.7) AV Cusp: 1.9 cm (1.5 - 2.6) MV EXCURSION: 16.733 mm (> 18.000) MV EF SLOPE: 102 mm/s (70 - 150) EPSS: 0.6 cm MV E Danny: 0.82 m/s MV DecT: 191 ms MV A Danny: 1.04 m/s MV E/A Ratio: 0.79 RAP: 5.00 mmHg RVSP: 61.33 mmHg FINDINGS -------- Resting tachycardia (HR>100bpm). This was a technically adequate study. The left ventricular size is normal. There is borderline concentric left ventricular hypertrophy. Overall left ventricular systolic function is severely impaired with, an EF between 25 - 30 %. exte nsive apical hypokinesis The right ventricle is mildly enlarged. The left atrium is normal in size. The right atrium is normal in size. Interatrial and interventricular septum intact. There is mild aortic valve sclerosis. The mitral valve leaflets are mildly thickened. There is trace to mild mitral regurgitation. Mild tricuspid regurgitation present. There is severe pulmonary hypertension. The right ventricul ar systolic pressure, as measured by Doppler, is 61.33mmHg. Trace/mild (physiologic) pulmonic regurgitation. The aortic root size is normal. Normal inferior vena cava with normal inspiratory collapse consistent with estimated right atrial pre ssure of 5 mmHg. There is no pericardial effusion. CONCLUSIONS -------- 1. The left ventricular size is normal. 2. There is borderline concentric left ventricular hypertrophy. 3. Overall left ventricular systolic function is severely impaired with, an EF between 25 - 30 %. 4. The right ventricle is mildly enlarged. 5. There is mild aortic valve sclerosis. 6. The mitral valve leaflets are mildly thickened. 7. There is trace to mild mitral regurgitation. 8. Mild tricuspid regurgitation present. 9. There is severe pulmonary hypertension. 10. The right ventricular systolic pressure, as measured by Doppler, is 61.33mmHg. 11. Trace/mild (physiologic) pulmonic regurgitation. 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
[2020-10-18] MEDS: CHOLECALCIFEROL 25 MCG (1000 IU) TABLET PO SCH (10:47)
[2020-10-18] MEDS: COLCHICINE 0.6 MG EACH PO SCH ×2 (10:47→20:36)
[2020-10-18] MEDS: ZINC SULFATE 220 MG CAP PO SCH (10:47)
[2020-10-18] MEDS: ASCORBIC ACID 500 MG TAB PO SCH (10:47)
[2020-10-18] MEDS: METOPROLOL TARTRATE 25 MG TAB PO SCH ×2 (10:47→20:35)
[2020-10-18] MEDS: FUROSEMIDE 20 MG TAB PO SCH ×2 (10:47→20:35)
[2020-10-18] MEDS: HEPARIN SOD,PORK IN 0.45% NACL 25,000 UNIT in 0.45% NACL 1 250ML.BAG IV SCH (10:49)
[2020-10-18 11:16] LABS: Appearance,Urine Clear (Clear); Bacteria,Urine Rare /hpf; Bilirubin,Urine Negative (Negative); Blood,Urine Moderate (Negative); Color,Urine Yellow; Glucose,Urine (UA) Negative (Negative); Ketones,Urine 1+ (Negative); Leukocyte Esterase,Urine Negative (Negative); Nitrite,Urine Negative (Negative); PH, Urine 6.5 (5.0-8.0); Protein,Urine 2+ (Negative); RBC,Urine 38 /hpf (0-5); Urobilinogen,Urine <2.0 mg/dL (<2.0); WBC,Urine 1 /hpf (0-5)
[2020-10-18 11:25] LABS: Specific Gravity,Urine >1.050 (1.001-1.035)
[2020-10-18 11:50] LABS: Glucose,Whole Blood 142 mg/dL (75-99)
[2020-10-18 13:38] LABS: ABG Base Excess -2.2 mmol/L; ABG HCO3 22 mmol/L (21-25); ABG Oxygen Saturation 97.9 % (94-97); ABG PCO2 30 mmHg (35-45); ABG PH 7.47 (7.35-7.45); ABG PO2 94 mmHg (83-108); ABG TCO2 23 mmol/L (19-24)
--- NOTE | 2020-10-18 14:35 | CDI ---
Documentation Clarification Form Date: 10/18/2020 02:22:00 PM From: Ly Duran RN, CCDS Admit Date: 10/14/2020 09:48:00 PM Patient Name: Pan Louie Visit Number: [id number] ATTENTION: The Clinical Documentation Specialists (CDI) and [facility] Coding Staff appreciate your assistance in clarifying documentation. Please respond to the clarification below the line at the bottom and electronically sign. The CDI & [facility] Coding staff will review the response and follow-up if needed. Please note: Queries are made part of the Legal Health Record. If you have any questions, please contact the author of this message via ITS. Dr. Shaikh E Sheet CHF is documented in the 10/15 H&P and progress notes and requires further specificity to accurately reflect the patients SOI/ROM. History/Risk Factors: PE with [place] filter, smoker Clinical Indicators: 10/15 H&P- 10/17 Attending Progress notes: "Appearance could relate to mild acute heart failure doubt a cute interstitial pneumonia." 10/14 2027 VS/Pulse OX: Temp 99.9, HR 99, RR 28, B/P 101/69, Spo2 83% room air BNP: not checked 10/18 Echocardiogram Results: EF 25-30%, left concentric LVH, severe pulmonary HTN, apical ballooning syndrome. 10/18 Chest X Ray:" Cardiomegaly with bilateral lower lung reticulonodular acute infiltrates, correlate for atypical infection. No significant change from most recent x-ray." Treatment: Lasix 20 mg PO BID Lopressor 25 mg PO BID 10/14 1l 0.9% NS IVF bolus followed by 75 cc/hr. In your professional opinion, can you please clarify the acuity and type of CHF if known? Systolic Heart Failure: Acute Chronic Acute on Chronic Diastolic Heart Failure: Acute Chronic Acute on Chronic Systolic & Diastolic Heart Failure: Acute Chronic Acute on Chronic Heart Failure Unable to Determine Other, please specify (Last Revision: November 2017) Acute systolic CHF secondary to ischemic cardiomyopathy with ejection fraction 25-30% % MTDD
--- NOTE | 2020-10-18 14:44 | CC ---
CARDIAC CATHETERIZATION REPORT Mr. Louie is a 60-year-old male who presented with progressive dyspnea and evidence of COVID-19 pneumonia on the 14 of October. He was has no prior cardiac history. Early this morning, he started to complain of chest discomfort and there was ST- segment elevation anteriorly. In view of that, recommendation was made regarding cardiac catheterization. The procedure as well as the risks and the complications were discussed with the patient who is in full understanding and agreement. PROCEDURE: Patient was brought to labor employment associate in a fasting semi-sedated state. He was prepped and draped in conventional fashion. Using Xylocaine anesthesia and Seldinger technique, a 6-Danish sheath was introduced in the right radial artery. Selective right and left coronary angiography performed using 6-Danish 3.75 EBU guiding catheter and a 5- Danish 3.5 right Manny catheter. Multiple views of the coronary artery including hemiaxial views were obtained. Following that the 5-Danish tight pigtail catheter was introduced in the left ventricle and pressures were calculated. Following that, catheter and sheath were removed. Hemostasis was obtained with deployment of a TR band. There was no immediate complication. Patient was returned to his room in stable condition. Of note, the patient received 5000 units of intravenous heparin as well as intra- arterial verapamil. FINDINGS: LEFT MAIN: This is a large-sized vessel, bifurcating into left circumflex, left anterior descending artery. Left main coronary artery has no evidence of high- grade stenosis. LEFT ANTERIOR DESCENDING ARTERY: This is a large-sized vessel giving rise to a moderately sized diagonal branch. The flow in the distal LAD is slow, but there is no evidence of high-grade stenosis. Evidence of mild intimal disease in the mid segment was noted that could represent a thrombotic event. LEFT CIRCUMFLEX: This is a large dominant vessel giving rise to 3 obtuse marginal branches distally bifurcating into PDA and posterolateral segment and branches. The left circumflex has mild intimal disease of 20% to 30% without any evidence of high- grade stenosis. RIGHT CORONARY ARTERY: This is a nondominant vessel, small in caliber that has no evidence of high-grade stenosis. LEFT VENTRICULOGRAM: Left ventriculogram is not performed. HEMODYNAMICS: There is no gradient across the aortic valve. The left ventricular end- diastolic pressure was 20-24 mmHg. CONCLUSION: 1. Slow flow in the distal LAD with an appearance suggestive of a thrombotic event with slow flow related to the COVID-19 infection. 2. Mild disease in left circumflex. RECOMMENDATION: In view of finding anatomy, I recommend continue medical therapy with restarting the heparin. Those findings and recommendation were discussed with the patient in full understanding and agreement. Duration of sedation is 20 minutes. PETE / KRISHNA: [id number] / MTDD
--- NOTE | 2020-10-18 14:49 | P.GSCN ---
<Dania Huber - Last Filed: 10/18/20 14:29> History of Present Illness Consult date: 10/18/20 Reason for Consult: Pulseless feet Requesting physician: Casey Dasilva History of present illness: This is a 60-year-old white male, with a past medical history of history of pulmonary embolism, patient was brought into the ER on 10/14/20 with compaints of intermittent episodes of fever chills, nausea vomiting, shortness of breath, cough, fever and body aches. She was diagnosed with covid 19 infection. Is admitted to the ICU. He had a pulmonary perfusion test which showed low probability of pulmonary embolism. He also had a venous Doppler of bilateral lower extremities which also reported negative for DVT bilaterally. He had a echocardiogram which showed an EF of 25-30% and underwent heart catheterization today. She also states he has a history of right lower extremity vascular repair, he states he had angiography. Vascular surgery was consulted today because the patient was complaining of left lower extremity pain that started yesterday. He was noted to have bilateral palpable lower extremity pulses yesterday. Today the nurse reported he had nonpalpable pulses to bilateral lower extremities. Left lower extremity was cool to the touch with decreased capillary refill. The patient is having increased shortness of breath, he has labored breathing. Currently on a heparin drip. Denies Any chest pain at this time. Review of Systems A 14 point review systems was completed all pertinent positives and negatives as stated in the HPI. Past Medical History Past Medical History: Pulmonary Embolus (PE) Additional Past Medical History / Comment(s): jimena filter History of Any Multi-Drug Resistant Organisms: None Reported Additional Past Surgical History / Comment(s): rt leg vascular repair- arthroscopy Past Psychological History: No Psychological Hx Reported Smoking Status: Former smoker Past Alcohol Use History: None Reported Past Drug Use History: None Reported Medications and Allergies Home Medications Medication Instructions Recorded Confirmed Type Acetaminophen Tab [Tylenol Tab] 1,000 mg PO Q6HR PRN 10/14/20 10/14/20 History Aspirin EC [Ecotrin Low Dose] 81 mg PO DAILY 10/14/20 10/14/20 History Clopidogrel Bisulfate [Plavix] 75 mg PO DAILY 10/14/20 10/14/20 History Allergies Allergy/AdvReac Type Severity Reaction Status Date / Time No Known Allergies Allergy Verified 10/14/20 22:02 Surgical - Exam Vital Signs Temp Pulse Resp BP Pulse Ox 99.9 F H 99 28 H 101/69 83 L 10/14/20 20:28 10/14/20 20:28 10/14/20 20:28 10/14/20 20:28 10/14/20 20:28 General appearance: The patient is alert, oriented, rapid breathing. HET: Head is normocephalic and atraumatic. Pupils are equal and reactive. Oropharynx is clear without lesions. Neck: Supple without lymphadenopathy. Trachea midline. Heart: S1 S2. Regular rate and rhythm. Lungs: CLear to auscultation. Labored breathing. Abdomen: Soft, nontender, nondistended. Extremities: Bilateral lower extremities dusky, delayed capillary refill bilateral lower extremities 4+ and cool to the touch. Patient is able to move bilateral lower extremities. Left lower extremity femoral with positive Doppler signal, no popliteal, posterior tibialis, or dorsalis pedis Doppler signal. Right lower extremity with positive femoral, popliteal, and posterior tibialis Doppler signal. Unable to obtain right dorsalis pedis Doppler signal. Neurological: No focal deficits. Strength and sensation are grossly intact. Results Ultrasound venous Doppler: Negative DVT bilaterally Pulmonary perfusion: Low probability of pulmonary embolism Cardiogram: Borderline concentric left ventricular hypertrophy, EF between 25- 30%, right ventricle mildly enlarged, mild aortic valve sclerosis, mitral valve leaflets mildly thickened, trace to mild mitral regurgitation, mild tricuspid regurgitation, severe pulmonary hypertension, trace pulmonic regurgitation, apical balooning syndrome - Labs 10/18/20 08:28 10/18/20 03:53 Abnormal Lab Results - Last 24 Hours (Table) 10/17/20 10/17/20 10/18/20 Range/Units 03:44 21:01 03:53 Plt Count (150-450) k/uL Neutrophils # (1.3-7.7) k/uL Lymphocytes # (1.0-4.8) k/uL PT (9.0-12.0) sec INR (<1.2) APTT (22.0-30.0) sec D-Dimer >34.10 H (<0.60) mg/L FEU Potassium (3.5-5.1) mmol/L BUN (9-20) mg/dL Glucose (74-99) mg/dL POC Glucose (mg/dL) 145 H (75-99) mg/dL Calcium (8.4-10.2) mg/dL AST (17-59) U/L ALT (4-49) U/L Alkaline Phosphatase (38-126) U/L Lactate Dehydrogenase (313-618) U/L Creatine Kinase (55-170) U/L Troponin I (0.000-0.034) ng/mL C-Reactive Protein (<10.0) mg/L Total Protein (6.3-8.2) g/dL Albumin (3.5-5.0) g/dL Triglycerides (<150) mg/dL LDL Cholesterol, Calc (0-99) mg/dL HDL Cholesterol (40-60) mg/dL Procalcitonin 0.10 H (0.02-0.09) ng/mL Ur Specific [place] (1.001-1.035) Urine Protein (Negative) Urine Ketones (Negative) Urine Blood (Negative) Urine RBC (0-5) /hpf Urine Bacteria (None) /hpf 10/18/20 10/18/20 10/18/20 Range/Units 03:53 03:53 06:06 Plt Count 117 L (150-450) k/uL Neutrophils # 9.0 H (1.3-7.7) k/uL Lymphocytes # 0.4 L (1.0-4.8) k/uL PT (9.0-12.0) sec INR (<1.2) APTT (22.0-30.0) sec D-Dimer (<0.60) mg/L FEU Potassium 3.4 L (3.5-5.1) mmol/L BUN 24 H (9-20) mg/dL Glucose 135 H (74-99) mg/dL POC Glucose (mg/dL) (75-99) mg/dL Calcium 8.3 L (8.4-10.2) mg/dL AST 173 H (17-59) U/L ALT 205 H (4-49) U/L Alkaline Phosphatase 187 H (38-126) U/L Lactate Dehydrogenase 3287 H (313-618) U/L Creatine Kinase 218 H (55-170) U/L Troponin I 6.570 H* (0.000-0.034) ng/mL C-Reactive Protein 14.5 H (<10.0) mg/L Total Protein 5.6 L (6.3-8.2) g/dL Albumin 3.3 L (3.5-5.0) g/dL Triglycerides (<150) mg/dL LDL Cholesterol, Calc (0-99) mg/dL HDL Cholesterol (40-60) mg/dL Procalcitonin (0.02-0.09) ng/mL Ur Specific [place] (1.001-1.035) Urine Protein (Negative) Urine Ketones (Negative) Urine Blood (Negative) Urine RBC (0-5) /hpf Urine Bacteria (None) /hpf 10/18/20 10/18/20 10/18/20 Range/Units 08:28 08:28 08:28 Plt Count 95 L (150-450) k/uL Neutrophils # 8.9 H (1.3-7.7) k/uL Lymphocytes # 0.3 L (1.0-4.8) k/uL PT 13.5 H (9.0-12.0) sec INR 1.3 H (<1.2) APTT 87.3 H (22.0-30.0) sec D-Dimer (<0.60) mg/L FEU Potassium (3.5-5.1) mmol/L BUN (9-20) mg/dL Glucose (74-99) mg/dL POC Glucose (mg/dL) (75-99) mg/dL Calcium (8.4-10.2) mg/dL AST (17-59) U/L ALT (4-49) U/L Alkaline Phosphatase (38-126) U/L Lactate Dehydrogenase (313-618) U/L Creatine Kinase (55-170) U/L Troponin I (0.000-0.034) ng/mL C-Reactive Protein (<10.0) mg/L Total Protein (6.3-8.2) g/dL Albumin (3.5-5.0) g/dL Triglycerides 155 H (<150) mg/dL LDL Cholesterol, Calc 112 H (0-99) mg/dL HDL Cholesterol 37 L (40-60) mg/dL Procalcitonin (0.02-0.09) ng/mL Ur Specific [place] (1.001-1.035) Urine Protein (Negative) Urine Ketones (Negative) Urine Blood (Negative) Urine RBC (0-5) /hpf Urine Bacteria (None) /hpf 10/18/20 10/18/20 Range/Units 08:28 11:00 Plt Count (150-450) k/uL Neutrophils # (1.3-7.7) k/uL Lymphocytes # (1.0-4.8) k/uL PT (9.0-12.0) sec INR (<1.2) APTT (22.0-30.0) sec D-Dimer (<0.60) mg/L FEU Potassium (3.5-5.1) mmol/L BUN (9-20) mg/dL Glucose (74-99) mg/dL POC Glucose (mg/dL) (75-99) mg/dL Calcium (8.4-10.2) mg/dL AST (17-59) U/L ALT (4-49) U/L Alkaline Phosphatase (38-126) U/L Lactate Dehydrogenase (313-618) U/L Creatine Kinase (55-170) U/L Troponin I 22.800 H* (0.000-0.034) ng/mL C-Reactive Protein (<10.0) mg/L Total Protein (6.3-8.2) g/dL Albumin (3.5-5.0) g/dL Triglycerides (<150) mg/dL LDL Cholesterol, Calc (0-99) mg/dL HDL Cholesterol (40-60) mg/dL Procalcitonin (0.02-0.09) ng/mL Ur Specific [place] >1.050 H (1.001-1.035) Urine Protein 2+ H (Negative) Urine Ketones 1+ H (Negative) Urine Blood Moderate H (Negative) Urine RBC 38 H (0-5) /hpf Urine Bacteria Rare H (None) /hpf Microbiology - Last 24 Hours (Table) 10/14/20 20:45 Blood Culture - Preliminary Blood No Growth after 72 hours 10/14/20 21:01 Blood Culture - Preliminary Blood No Growth after 72 hours Diabetes panel 10/18/20 10/18/20 Range/Units 03:53 08:28 Sodium 137 (137-145) mmol/L Potassium 3.4 L (3.5-5.1) mmol/L Chloride 106 (98-107) mmol/L Carbon Dioxide 22 (22-30) mmol/L BUN 24 H (9-20) mg/dL Creatinine 0.69 (0.66-1.25) mg/dL Glucose 135 H (74-99) mg/dL Calcium 8.3 L (8.4-10.2) mg/dL AST 173 H (17-59) U/L ALT 205 H (4-49) U/L Alkaline Phosphatase 187 H (38-126) U/L Total Protein 5.6 L (6.3-8.2) g/dL Albumin 3.3 L (3.5-5.0) g/dL Triglycerides 155 H (<150) mg/dL HDL Cholesterol 37 L (40-60) mg/dL Calcium panel 10/18/20 Range/Units 03:53 Calcium 8.3 L (8.4-10.2) mg/dL Albumin 3.3 L (3.5-5.0) g/dL Pituitary panel 10/18/20 Range/Units 03:53 Sodium 137 (137-145) mmol/L Potassium 3.4 L (3.5-5.1) mmol/L Chloride 106 (98-107) mmol/L Carbon Dioxide 22 (22-30) mmol/L BUN 24 H (9-20) mg/dL Creatinine 0.69 (0.66-1.25) mg/dL Glucose 135 H (74-99) mg/dL Calcium 8.3 L (8.4-10.2) mg/dL Adrenal panel 10/18/20 Range/Units 03:53 Sodium 137 (137-145) mmol/L Potassium 3.4 L (3.5-5.1) mmol/L Chloride 106 (98-107) mmol/L Carbon Dioxide 22 (22-30) mmol/L BUN 24 H (9-20) mg/dL Creatinine 0.69 (0.66-1.25) mg/dL Glucose 135 H (74-99) mg/dL Calcium 8.3 L (8.4-10.2) mg/dL Total Bilirubin 1.2 (0.2-1.3) mg/dL AST 173 H (17-59) U/L ALT 205 H (4-49) U/L Alkaline Phosphatase 187 H (38-126) U/L Total Protein 5.6 L (6.3-8.2) g/dL Albumin 3.3 L (3.5-5.0) g/dL Assessment and Plan Assessment: 1. Acute lower extremity ischemia 2. Left lower extremity pain 3. History of peripheral arterial disease 4. Covid-19 infection 5. Hypoxic respiratory failure secondary to coated 19 pneumonia 6. Acute anterior myocardial infarction 7. History of pulmonary embolism Plan: Supportive care Stat arterial lower extremity ultrasound studies Continue Heparin drip Continue ICU medical management Further recommendations to follow The impression and plan of care has been dictated as directed. Dr. Chung I performed a history and examination of this patient, discussed the same with the dictator. I agree with the dictator's note ,documented as a scribe. Any additional findings or plans will be noted. <Walker Chung - Last Filed: 10/18/20 19:27> Surgical - Exam Vital Signs Temp Pulse Resp BP Pulse Ox 99.9 F H 99 28 H 101/69 83 L 10/14/20 20:28 10/14/20 20:28 10/14/20 20:28 10/14/20 20:28 10/14/20 20:28 Results - Labs 10/18/20 08:28 10/18/20 03:53 Abnormal Lab Results - Last 24 Hours (Table) 10/17/20 10/18/20 10/18/20 Range/Units 21:01 03:53 03:53 Plt Count (150-450) k/uL Neutrophils # (1.3-7.7) k/uL Lymphocytes # (1.0-4.8) k/uL PT (9.0-12.0) sec INR (<1.2) APTT (22.0-30.0) sec D-Dimer >34.10 H (<0.60) mg/L FEU ABG pH (7.35-7.45) ABG pCO2 (35-45) mmHg ABG O2 Saturation (94-97) % Potassium 3.4 L (3.5-5.1) mmol/L BUN 24 H (9-20) mg/dL Glucose 135 H (74-99) mg/dL POC Glucose (mg/dL) 145 H (75-99) mg/dL Calcium 8.3 L (8.4-10.2) mg/dL AST 173 H (17-59) U/L ALT 205 H (4-49) U/L Alkaline Phosphatase 187 H (38-126) U/L Lactate Dehydrogenase 3287 H (313-618) U/L Creatine Kinase 218 H (55-170) U/L Troponin I (0.000-0.034) ng/mL C-Reactive Protein 14.5 H (<10.0) mg/L Total Protein 5.6 L (6.3-8.2) g/dL Albumin 3.3 L (3.5-5.0) g/dL Triglycerides (<150) mg/dL LDL Cholesterol, Calc (0-99) mg/dL HDL Cholesterol (40-60) mg/dL Ur Specific [place] (1.001-1.035) Urine Protein (Negative) Urine Ketones (Negative) Urine Blood (Negative) Urine RBC (0-5) /hpf Urine Bacteria (None) /hpf 10/18/20 10/18/20 10/18/20 Range/Units 03:53 06:06 08:28 Plt Count 117 L 95 L (150-450) k/uL Neutrophils # 9.0 H 8.9 H (1.3-7.7) k/uL Lymphocytes # 0.4 L 0.3 L (1.0-4.8) k/uL PT (9.0-12.0) sec INR (<1.2) APTT (22.0-30.0) sec D-Dimer (<0.60) mg/L FEU ABG pH (7.35-7.45) ABG pCO2 (35-45) mmHg ABG O2 Saturation (94-97) % Potassium (3.5-5.1) mmol/L BUN (9-20) mg/dL Glucose (74-99) mg/dL POC Glucose (mg/dL) (75-99) mg/dL Calcium (8.4-10.2) mg/dL AST (17-59) U/L ALT (4-49) U/L Alkaline Phosphatase (38-126) U/L Lactate Dehydrogenase (313-618) U/L Creatine Kinase (55-170) U/L Troponin I 6.570 H* (0.000-0.034) ng/mL C-Reactive Protein (<10.0) mg/L Total Protein (6.3-8.2) g/dL Albumin (3.5-5.0) g/dL Triglycerides (<150) mg/dL LDL Cholesterol, Calc (0-99) mg/dL HDL Cholesterol (40-60) mg/dL Ur Specific [place] (1.001-1.035) Urine Protein (Negative) Urine Ketones (Negative) Urine Blood (Negative) Urine RBC (0-5) /hpf Urine Bacteria (None) /hpf 10/18/20 10/18/20 10/18/20 Range/Units 08:28 08:28 08:28 Plt Count (150-450) k/uL Neutrophils # (1.3-7.7) k/uL Lymphocytes # (1.0-4.8) k/uL PT 13.5 H (9.0-12.0) sec INR 1.3 H (<1.2) APTT 87.3 H (22.0-30.0) sec D-Dimer (<0.60) mg/L FEU ABG pH (7.35-7.45) ABG pCO2 (35-45) mmHg ABG O2 Saturation (94-97) % Potassium (3.5-5.1) mmol/L BUN (9-20) mg/dL Glucose (74-99) mg/dL POC Glucose (mg/dL) (75-99) mg/dL Calcium (8.4-10.2) mg/dL AST (17-59) U/L ALT (4-49) U/L Alkaline Phosphatase (38-126) U/L Lactate Dehydrogenase (313-618) U/L Creatine Kinase (55-170) U/L Troponin I 22.800 H* (0.000-0.034) ng/mL C-Reactive Protein (<10.0) mg/L Total Protein (6.3-8.2) g/dL Albumin (3.5-5.0) g/dL Triglycerides 155 H (<150) mg/dL LDL Cholesterol, Calc 112 H (0-99) mg/dL HDL Cholesterol 37 L (40-60) mg/dL Ur Specific [place] (1.001-1.035) Urine Protein (Negative) Urine Ketones (Negative) Urine Blood (Negative) Urine RBC (0-5) /hpf Urine Bacteria (None) /hpf 10/18/20 10/18/2021 Range/Units 11:00 11:32 11:49 Plt Count (150-450) k/uL Neutrophils # (1.3-7.7) k/uL Lymphocytes # (1.0-4.8) k/uL PT (9.0-12.0) sec INR (<1.2) APTT (22.0-30.0) sec D-Dimer (<0.60) mg/L FEU ABG pH (7.35-7.45) ABG pCO2 (35-45) mmHg ABG O2 Saturation (94-97) % Potassium (3.5-5.1) mmol/L BUN (9-20) mg/dL Glucose (74-99) mg/dL POC Glucose (mg/dL) 142 H (75-99) mg/dL Calcium (8.4-10.2) mg/dL AST (17-59) U/L ALT (4-49) U/L Alkaline Phosphatase (38-126) U/L Lactate Dehydrogenase (313-618) U/L Creatine Kinase (55-170) U/L Troponin I 52.700 H* (0.000-0.034) ng/mL C-Reactive Protein (<10.0) mg/L Total Protein (6.3-8.2) g/dL Albumin (3.5-5.0) g/dL Triglycerides (<150) mg/dL LDL Cholesterol, Calc (0-99) mg/dL HDL Cholesterol (40-60) mg/dL Ur Specific [place] >1.050 H (1.001-1.035) Urine Protein 2+ H (Negative) Urine Ketones 1+ H (Negative) Urine Blood Moderate H (Negative) Urine RBC 38 H (0-5) /hpf Urine Bacteria Rare H (None) /hpf 10/18/20 Range/Units 13:28 Plt Count (150-450) k/uL Neutrophils # (1.3-7.7) k/uL Lymphocytes # (1.0-4.8) k/uL PT (9.0-12.0) sec INR (<1.2) APTT (22.0-30.0) sec D-Dimer (<0.60) mg/L FEU ABG pH 7.47 H (7.35-7.45) ABG pCO2 30 L (35-45) mmHg ABG O2 Saturation 97.9 H (94-97) % Potassium (3.5-5.1) mmol/L BUN (9-20) mg/dL Glucose (74-99) mg/dL POC Glucose (mg/dL) (75-99) mg/dL Calcium (8.4-10.2) mg/dL AST (17-59) U/L ALT (4-49) U/L Alkaline Phosphatase (38-126) U/L Lactate Dehydrogenase (313-618) U/L Creatine Kinase (55-170) U/L Troponin I (0.000-0.034) ng/mL C-Reactive Protein (<10.0) mg/L Total Protein (6.3-8.2) g/dL Albumin (3.5-5.0) g/dL Triglycerides (<150) mg/dL LDL Cholesterol, Calc (0-99) mg/dL HDL Cholesterol (40-60) mg/dL Ur Specific [place] (1.001-1.035) Urine Protein (Negative) Urine Ketones (Negative) Urine Blood (Negative) Urine RBC (0-5) /hpf Urine Bacteria (None) /hpf Microbiology - Last 24 Hours (Table) 10/14/20 20:45 Blood Culture - Preliminary Blood No Growth after 72 hours 10/14/20 21:01 Blood Culture - Preliminary Blood No Growth after 72 hours Diabetes panel 10/18/20 10/18/20 Range/Units 03:53 08:28 Sodium 137 (137-145) mmol/L Potassium 3.4 L (3.5-5.1) mmol/L Chloride 106 (98-107) mmol/L Carbon Dioxide 22 (22-30) mmol/L BUN 24 H (9-20) mg/dL Creatinine 0.69 (0.66-1.25) mg/dL Glucose 135 H (74-99) mg/dL Calcium 8.3 L (8.4-10.2) mg/dL AST 173 H (17-59) U/L ALT 205 H (4-49) U/L Alkaline Phosphatase 187 H (38-126) U/L Total Protein 5.6 L (6.3-8.2) g/dL Albumin 3.3 L (3.5-5.0) g/dL Triglycerides 155 H (<150) mg/dL HDL Cholesterol 37 L (40-60) mg/dL Calcium panel 10/18/20 Range/Units 03:53 Calcium 8.3 L (8.4-10.2) mg/dL Albumin 3.3 L (3.5-5.0) g/dL Pituitary panel 10/18/20 Range/Units 03:53 Sodium 137 (137-145) mmol/L Potassium 3.4 L (3.5-5.1) mmol/L Chloride 106 (98-107) mmol/L Carbon Dioxide 22 (22-30) mmol/L BUN 24 H (9-20) mg/dL Creatinine 0.69 (0.66-1.25) mg/dL Glucose 135 H (74-99) mg/dL Calcium 8.3 L (8.4-10.2) mg/dL Adrenal panel 10/18/20 Range/Units 03:53 Sodium 137 (137-145) mmol/L Potassium 3.4 L (3.5-5.1) mmol/L Chloride 106 (98-107) mmol/L Carbon Dioxide 22 (22-30) mmol/L BUN 24 H (9-20) mg/dL Creatinine 0.69 (0.66-1.25) mg/dL Glucose 135 H (74-99) mg/dL Calcium 8.3 L (8.4-10.2) mg/dL Total Bilirubin 1.2 (0.2-1.3) mg/dL AST 173 H (17-59) U/L ALT 205 H (4-49) U/L Alkaline Phosphatase 187 H (38-126) U/L Total Protein 5.6 L (6.3-8.2) g/dL Albumin 3.3 L (3.5-5.0) g/dL Assessment and Plan Plan: Patient seen and examined. No pain at left calf with palpation. Foot is cold but patient able to move without difficulty. Palpable femoral pulse on the right with diminished on the left. Non palpable dp and pt pulses bilaterally. Discussed with patient risk of laying flat for surgical procedure and at this time the risk of intubation from a respiratory standpoint is high and his leg is not at acute risk for amputation so we will continue to the heparin drip and if his respiratory status improves he may benefit from angiogram with thrombolytics or thrombectomy.
[2020-10-18] MEDS: ALPRAZolam 0.5 MG TAB PO PRN ×2 (15:15→20:34)
--- NOTE | 2020-10-18 15:29 | PN ---
PROGRESS NOTE DATE OF SERVICE: 10/18/2020 REASON FOR FOLLOWUP: COVID-19 infection. INTERVAL HISTORY: The patient is currently afebrile. The patient mentioned he is not feeling as great today. He did have an episode of chest pain this morning with EKG abnormality, for which the patient was evaluated by Cardiology. Echocardiogram showed low EF and the patient had a cardiac catheterization; official report is currently pending. Patient was also noted to have no pulse to the left leg, and Vascular Surgery has been consulted. Not any pressor support. PHYSICAL EXAMINATION: Blood pressure 128/77 with a pulse of 103, temperature 98.6. He is 92% on high- flow oxygen. General description is a middle-aged male lying in bed in no distress. RESPIRATORY SYSTEM: Unlabored breathing with bilateral rhonchi. No wheeze. HEART: S1, S2. Regular rate and rhythm. ABDOMEN: Soft. No tenderness. LABS: Hemoglobin is 13.6, white count 9.9. DIAGNOSTIC IMPRESSION AND PLAN: Patient with acute COVID-19 infection in this patient who seems to have some complication with possible cardiac and peripheral vascular event. Cardiology and Vascular have been on board. The patient is on heparin per weight-based protocol; to continue in addition to the Solu-Medrol, zinc and respiratory support. Prognosis remains guarded. MMODL / IJN: [id number] /
[2020-10-18 19:55] LABS: Glucose,Whole Blood 148 mg/dL (75-99)
[2020-10-18] MEDS: POTASSIUM CHLORIDE ER 20 MEQ TAB.ER PO SCH (22:13)
[2020-10-18 22:21] LABS: ABG Base Excess -0.4 mmol/L; ABG HCO3 23 mmol/L (21-25); ABG Oxygen Saturation 95.5 % (94-97); ABG PCO2 32 mmHg (35-45); ABG PH 7.48 (7.35-7.45); ABG PO2 73 mmHg (83-108); ABG TCO2 24 mmol/L (19-24); Allen Test Performed? Yes
--- NOTE | 2020-10-18 23:44 | P.PN ---
Subjective Patient is a 60-year-old male with a known history of pulmonary embolism status post [place] filter in 2007 and previous history of smoking presents to ER with the complaints of shortness of breath, cough without sputum production, fever and generalized body aches. Patient says that he initially had abdominal discomfort and diarrhea which was resolved about 2 weeks ago. Patient has been having progressively worsening symptoms. Denied any chest pain. Denied any sick contacts are recent travel. Denied any leg swelling. Chest x-ray showed mild pulmonary infiltrate interstitial edema. Borderline cardiac regular. Appearance could relate to mild acute heart failure doubt acute interstitial pneumonia. EKG showed normal sinus rhythm next and laboratory data in the ER showed WBC 3.8, hemoglobin 17.8 and platelets 168 lymphocytes 0.7 and d-dimer 1.46 Sodium 135 potassium 3.9 BUN 43 and creatinine 1.66 lactic acid 2.1 on admission Ferritin 2747.5, AST 74-year-old is 57 LDH 2143 and CRP 69.2 and pro calcitonin level is 0.2 [address]. T-max was 99.9 on admission and patient was saturating at 83% on room air and tachypneic with respiratory rate 28 and tachycardic on admission. 10/16/2020 Patient is currently in the MICU. on Airvo 60 percent and is saturating at 96%. Patient is having diarrhea. Continued on IV hydration. Tolerating oral diet. Inflammatory markers are trending down slowly. Continue Decadron and Lovenox. Chest x-ray showed scattered interstitial infiltrates persist unchanged. Patient has been afebrile. Bilateral lower extremity duplex scan is negative for DVT at VQ scan is low probability for PE patient is being continued Lovenox 40 mg subcu daily. Also on empiric antibiotics of ceftriaxone and azithromycin. Pulmonary is following. Subjective: 10/17/2020 This is a pleasant 68 years old male was admitted to the ICU with acute respiratory failure secondary to cough with pneumonia with possible superimposed bacterial infection, currently he remains in the ICU with airflow at 60 L/m at- risk of intubation with pulmonary/critical care team are following him very closely CBC and BMP looks stable, inflammatory markers are still elevated. Chest x-ray: Bilateral infiltrate He remains on ceftriaxone and Zithromax, Lovenox 40 mg daily, Solu-Medrol 60 mg, and normal saline at 75 mL per as well as zinc and vitamin C pulmonary and infectious disease team on the case 10/18/2020 Earlier this morning patient was noted to have some rhythm changes and ST segment elevation in the heart monitor, EKG was obtained and showing ST elevation myocardial infarction with elevated troponin, 6.5, 22.8 and 52.7. Patient was placed on heparin drip and cartilage team were consulted and patient was taken to emergent cardiac cath, Showing slow flow in the distal LAD with appearance suggestive of a thrombotic event with a slow flow related to the cough at 19 infection. No stent was placed and medical therapy recommended Meter on patient was complaining from left foot pain, both feet are cold, dorsalis pedis could not be felt on both sides. Patient remains on heparin drip He is tachypneic with a breathing rate 20-30, he saturating 90-92% on 60 L/m. Afebrile. CBC and BMP is unremarkable. Liver enzymes slightly elevated. Inflammatory markers are still elevated including LDH, C-reactive protein. D-dimer is elevated today more than 34. Patient was placed on aspirin, Plavix as well as heparin drip. Also metoprolol 25 mg twice daily and Lasix 20 mg twice a day. Also Aldactone Cardiology team and vascular surgery team was consulted Review of systems: CONSTITUTIONAL: No fever, no malaise, no fatigue. HEENT: No recent visual problems or hearing problems. Denied any sore throat. CARDIOVASCULAR: No orthopnea, PND, no palpitations, no syncope. PULMONARY: No shortness of breath, no cough, no hemoptysis. GASTROINTESTINAL: No diarrhea, no nausea, no vomiting, no abdominal pain. Normoactive bowel sounds. NEUROLOGICAL: No headaches, no weakness, no numbness. Active Medications Generic Name Dose Route Start Last Admin Trade Name Freq PRN Reason Stop Dose Admin Acetaminophen 650 mg 10/14/20 23:50 Acetaminophen Tab 325 Mg Tab PO Q4HR PRN Fever and/ or Pain Albuterol Sulfate 1 puff 10/15/20 08:00 10/17/20 20:57 Albuterol Hfa Inhaler INHALATION 1 puff RT-TID TOBY Administration Albuterol Sulfate 1 puff 10/15/20 05:18 10/16/20 15:43 Albuterol Hfa Inhaler INHALATION 1 puff RT-TID PRN Administration Shortness Of Breath Or Wheezing Ascorbic Acid 1,000 mg 10/15/20 10:15 10/17/20 08:01 Ascorbic Acid 500 Mg Tab PO 1,000 mg DAILY TOBY Administration Azithromycin 250 mg 10/16/20 16:00 10/17/20 15:53 Azithromycin 250 Mg Tab PO 250 mg Q24H TOBY Administration Budesonide/Formoterol Fumarate 2 puff 10/17/20 20:00 10/17/20 21:41 Symbicort 160-4.5 Mcg Inhaler INHALATION Not Given RT-BID TOBY Cholecalciferol 25 mcg 10/15/20 10:15 10/17/20 08:02 Cholecalciferol 25 Mcg (1000 Iu) Tablet PO 25 mcg DAILY TOBY Administration Colchicine 0.6 mg 10/15/20 10:15 10/17/20 21:08 Colchicine 0.6 Mg Each PO 0.6 mg BID TOBY Administration Enoxaparin Sodium 40 mg 10/16/20 09:00 10/17/20 08:03 Enoxaparin 40 Mg/0.4 Ml Syringe SQ 40 mg DAILY TOBY Administration Sodium Chloride 1,000 mls @ 75 mls/hr 10/14/20 23:45 10/17/20 21:08 Saline 0.9% IV 75 mls/hr .[id number] TOBY Administration Ceftriaxone Sodium 1 gm/ 50 mls @ 100 mls/hr 10/15/20 18:00 10/17/20 17:02 Sodium Chloride IVPB 100 mls/hr Q24H TOBY Administration Insulin Aspart 0 unit 10/15/20 07:30 10/17/20 21:08 Insulin Aspart (Novolog) 100 Unit/Ml Vial SQ 2 unit ACHS TOBY Administration Protocol Loperamide HCl 2 mg 10/15/20 16:50 10/17/20 17:07 Loperamide 2 Mg Cap PO 2 mg QID PRN Administration Diarrhea Methylprednisolone Sodium Succinate 60 mg 10/17/20 12:00 10/17/20 23:25 Methylprednisolone Sod Succi 125 Mg/2 Ml Vial IV 60 mg Q6HR TOBY Administration Naloxone HCl 0.2 mg 10/14/20 21:48 Naloxone 0.4 Mg/Ml 1 Ml Vial IV Q2M PRN Opioid Reversal Zinc Sulfate 220 mg 10/15/20 10:15 10/17/20 08:02 Zinc Sulfate 220 Mg Cap PO 220 mg DAILY TOBY Administration Objective - Vital Signs Vital signs: Vital Signs Temp 98.6 F 10/18/20 12:00 Pulse 90 10/18/20 18:00 Resp 20 10/18/20 18:00 BP 128/64 10/18/20 18:00 Pulse Ox 93 L 10/18/20 18:00 Intake & Output 10/17/20 10/18/20 10/18/20 18:59 06:59 18:59 Intake Total 1500 900 997.465 Output Total 875 099 5033 Balance 899 400 -38.535 Weight 85.1 kg Intake: IV 900 900 935 Sodium Chloride 0.9% 1, 900 900 160 000 ml @ 75 mls/hr IV . [id number] [facility] Rx#:[id number] Sodium Chloride 0.9% 1, 755 000 ml In Empty Bag 1 bag @ 1 ML/KG/HR 85.1 mls/hr IV .[id number] [facility] Rx#: [id number] Intake, IV Titration 62.465 Amount Heparin Sod,Pork in 0.45% 62.465 NaCl 25,000 unit In 0.45 % NaCl 1 250ml.bag @ 11. 75 UNITS/KG/HR 9.999 mls/ hr IV .Q24H [facility] Rx#: [id number] Oral 600 Output: Urine 843 441 6322 Stool 1 1 Other: # Voids 1 1 # Bowel Movements 1 1 - Exam -GENERAL: The patient is awake and alert, in distress due to pain from his left foot. HEENT: Pupils are round and equally reacting to light. EOMI. No scleral icterus. No conjunctival pallor. Normocephalic, atraumatic. No pharyngeal erythema. No thyromegaly. CARDIOVASCULAR: S1 and S2 present. No murmurs, rubs, or gallops. -PULMONARY: Chest is clear to auscultation, bilateral coarse crepitation and decreased breath sounds ABDOMEN: Soft, nontender, nondistended, normoactive bowel sounds. No palpable organomegaly. MUSCULOSKELETAL: No joint swelling or deformity. -EXTREMITIES: No cyanosis, clubbing, or pedal edema. Both feet are cold. Dorsalis pedis could not be felt on both sides NEUROLOGICAL: Gross neurological examination did not reveal any focal deficits. SKIN: No rashes. no petechiae. - Labs CBC & Chem 7: 10/18/20 08:28 10/18/20 18:25 Labs: Abnormal Lab Results - Last 24 Hours (Table) 10/17/20 10/18/20 10/18/20 Range/Units 21:01 03:53 03:53 Plt Count (150-450) k/uL Neutrophils # (1.3-7.7) k/uL Lymphocytes # (1.0-4.8) k/uL PT (9.0-12.0) sec INR (<1.2) APTT (22.0-30.0) sec D-Dimer >34.10 H (<0.60) mg/L FEU ABG pH (7.35-7.45) ABG pCO2 (35-45) mmHg ABG O2 Saturation (94-97) % Potassium 3.4 L (3.5-5.1) mmol/L BUN 24 H (9-20) mg/dL Glucose 135 H (74-99) mg/dL POC Glucose (mg/dL) 145 H (75-99) mg/dL Calcium 8.3 L (8.4-10.2) mg/dL AST 173 H (17-59) U/L ALT 205 H (4-49) U/L Alkaline Phosphatase 187 H (38-126) U/L Lactate Dehydrogenase 3287 H (313-618) U/L Creatine Kinase 218 H (55-170) U/L Troponin I (0.000-0.034) ng/mL C-Reactive Protein 14.5 H (<10.0) mg/L Total Protein 5.6 L (6.3-8.2) g/dL Albumin 3.3 L (3.5-5.0) g/dL Triglycerides (<150) mg/dL LDL Cholesterol, Calc (0-99) mg/dL HDL Cholesterol (40-60) mg/dL Ur Specific [place] (1.001-1.035) Urine Protein (Negative) Urine Ketones (Negative) Urine Blood (Negative) Urine RBC (0-5) /hpf Urine Bacteria (None) /hpf 10/18/20 10/18/20 10/18/20 Range/Units 03:53 06:06 08:28 Plt Count 117 L 95 L (150-450) k/uL Neutrophils # 9.0 H 8.9 H (1.3-7.7) k/uL Lymphocytes # 0.4 L 0.3 L (1.0-4.8) k/uL PT (9.0-12.0) sec INR (<1.2) APTT (22.0-30.0) sec D-Dimer (<0.60) mg/L FEU ABG pH (7.35-7.45) ABG pCO2 (35-45) mmHg ABG O2 Saturation (94-97) % Potassium (3.5-5.1) mmol/L BUN (9-20) mg/dL Glucose (74-99) mg/dL POC Glucose (mg/dL) (75-99) mg/dL Calcium (8.4-10.2) mg/dL AST (17-59) U/L ALT (4-49) U/L Alkaline Phosphatase (38-126) U/L Lactate Dehydrogenase (313-618) U/L Creatine Kinase (55-170) U/L Troponin I 6.570 H* (0.000-0.034) ng/mL C-Reactive Protein (<10.0) mg/L Total Protein (6.3-8.2) g/dL Albumin (3.5-5.0) g/dL Triglycerides (<150) mg/dL LDL Cholesterol, Calc (0-99) mg/dL HDL Cholesterol (40-60) mg/dL Ur Specific [place] (1.001-1.035) Urine Protein (Negative) Urine Ketones (Negative) Urine Blood (Negative) Urine RBC (0-5) /hpf Urine Bacteria (None) /hpf 10/18/20 10/18/20 10/18/20 Range/Units 08:28 08:28 08:28 Plt Count (150-450) k/uL Neutrophils # (1.3-7.7) k/uL Lymphocytes # (1.0-4.8) k/uL PT 13.5 H (9.0-12.0) sec INR 1.3 H (<1.2) APTT 87.3 H (22.0-30.0) sec D-Dimer (<0.60) mg/L FEU ABG pH (7.35-7.45) ABG pCO2 (35-45) mmHg ABG O2 Saturation (94-97) % Potassium (3.5-5.1) mmol/L BUN (9-20) mg/dL Glucose (74-99) mg/dL POC Glucose (mg/dL) (75-99) mg/dL Calcium (8.4-10.2) mg/dL AST (17-59) U/L ALT (4-49) U/L Alkaline Phosphatase (38-126) U/L Lactate Dehydrogenase (313-618) U/L Creatine Kinase (55-170) U/L Troponin I 22.800 H* (0.000-0.034) ng/mL C-Reactive Protein (<10.0) mg/L Total Protein (6.3-8.2) g/dL Albumin (3.5-5.0) g/dL Triglycerides 155 H (<150) mg/dL LDL Cholesterol, Calc 112 H (0-99) mg/dL HDL Cholesterol 37 L (40-60) mg/dL Ur Specific [place] (1.001-1.035) Urine Protein (Negative) Urine Ketones (Negative) Urine Blood (Negative) Urine RBC (0-5) /hpf Urine Bacteria (None) /hpf 10/18/20 10/18/20 10/18/20 Range/Units 11:00 11:32 11:49 Plt Count (150-450) k/uL Neutrophils # (1.3-7.7) k/uL Lymphocytes # (1.0-4.8) k/uL PT (9.0-12.0) sec INR (<1.2) APTT (22.0-30.0) sec D-Dimer (<0.60) mg/L FEU ABG pH (7.35-7.45) ABG pCO2 (35-45) mmHg ABG O2 Saturation (94-97) % Potassium (3.5-5.1) mmol/L BUN (9-20) mg/dL Glucose (74-99) mg/dL POC Glucose (mg/dL) 142 H (75-99) mg/dL Calcium (8.4-10.2) mg/dL AST (17-59) U/L ALT (4-49) U/L Alkaline Phosphatase (38-126) U/L Lactate Dehydrogenase (313-618) U/L Creatine Kinase (55-170) U/L Troponin I 52.700 H* (0.000-0.034) ng/mL C-Reactive Protein (<10.0) mg/L Total Protein (6.3-8.2) g/dL Albumin (3.5-5.0) g/dL Triglycerides (<150) mg/dL LDL Cholesterol, Calc (0-99) mg/dL HDL Cholesterol (40-60) mg/dL Ur Specific [place] >1.050 H (1.001-1.035) Urine Protein 2+ H (Negative) Urine Ketones 1+ H (Negative) Urine Blood Moderate H (Negative) Urine RBC 38 H (0-5) /hpf Urine Bacteria Rare H (None) /hpf 10/18/20 Range/Units 13:28 Plt Count (150-450) k/uL Neutrophils # (1.3-7.7) k/uL Lymphocytes # (1.0-4.8) k/uL PT (9.0-12.0) sec INR (<1.2) APTT (22.0-30.0) sec D-Dimer (<0.60) mg/L FEU ABG pH 7.47 H (7.35-7.45) ABG pCO2 30 L (35-45) mmHg ABG O2 Saturation 97.9 H (94-97) % Potassium (3.5-5.1) mmol/L BUN (9-20) mg/dL Glucose (74-99) mg/dL POC Glucose (mg/dL) (75-99) mg/dL Calcium (8.4-10.2) mg/dL AST (17-59) U/L ALT (4-49) U/L Alkaline Phosphatase (38-126) U/L Lactate Dehydrogenase (313-618) U/L Creatine Kinase (55-170) U/L Troponin I (0.000-0.034) ng/mL C-Reactive Protein (<10.0) mg/L Total Protein (6.3-8.2) g/dL Albumin (3.5-5.0) g/dL Triglycerides (<150) mg/dL LDL Cholesterol, Calc (0-99) mg/dL HDL Cholesterol (40-60) mg/dL Ur Specific [place] (1.001-1.035) Urine Protein (Negative) Urine Ketones (Negative) Urine Blood (Negative) Urine RBC (0-5) /hpf Urine Bacteria (None) /hpf Microbiology - Last 24 Hours (Table) 10/14/20 20:45 Blood Culture - Preliminary Blood No Growth after 72 hours 10/14/20 21:01 Blood Culture - Preliminary Blood No Growth after 72 hours Assessment and Plan Assessment: Acute hypoxic respiratory failure secondary to bilateral COVID 19 pneumonia Elevated inflammatory markers secondary to above. Acute ST elevation myocardial infarction secondary to distal LAD disease, medical management recommended Cold painful feet, rule out thrombotic event Acute kidney injury, resolved Diarrhea second likely secondary to viral infection, improving Elevated d-dimer level I.49 History of PE status post [place] filter placement in 2018 Peripheral vascular disease history Previous history of smoking Plan: This is a pleasant 60 years old male who presents with bilateral cold fluid. Continue with oxygen supplementation per airfoam. Pulmonary/critical care team. Continue with heparin drip Continue with zinc and vitamin C. Continue with steroids. Also continue with aspirin and Plavix Cardiology and vascular surgery teams consult Follow-up recommendation by infectious disease team Labs and medication were reviewed.. Continue same treatment. Continue with symptomatic treatment. Resume home medication. Monitor lytes and vitals. DVT and GI prophylaxis. Further recommendations as per clinical course of the patient DVT prophylaxis: Heparin GI Prophylaxis: Pepcid Prognosis is guarded
[2020-10-19] MEDS: methylPREDNISolone SOD SUCCI 125 MG/2 ML VIAL IV SCH ×2 (00:06→06:25)
[2020-10-19] MEDS: POTASSIUM CHLORIDE ER 20 MEQ TAB.ER PO SCH (00:07)
[2020-10-19 01:42] LABS: Ferritin 2083.2 ng/mL (22.0-322.0)
[2020-10-19 03:48] LABS: Basophils # (A) 0.1 k/uL (0-0.2); Basophils % (A) 1 %; Eosinophils % (A) 0 %; HCT 43.1 % (39.0-53.0); HGB 14.5 gm/dL (13.0-17.5); Lymphocytes # (A) 0.3 k/uL (1.0-4.8); Lymphocytes % (A) 3 %; MCHC 33.7 g/dL (31.0-37.0); MCV 91.8 fL (80.0-100.0); Mean Platelet Volume 8.5; Monocytes # (A) 0.5 k/uL (0-1.0); Monocytes % (A) 5 %; Neutrophils # (A) 9.9 k/uL (1.3-7.7); Neutrophils % (A) 89 %; RDW 13.4 % (11.5-15.5); WBC 11.1 k/uL (3.8-10.6)
[2020-10-19 03:52] LABS: Platelet Count 95 k/uL (150-450)
[2020-10-19] MEDS: HEPARIN SOD,PORK IN 0.45% NACL 25,000 UNIT in 0.45% NACL 1 250ML.BAG IV SCH (03:58)
[2020-10-19 04:04] LABS: African American GFR (CKD) >90 (>60 ml/min/1.73 sqM); Anion Gap 8 mmol/L; Blood Urea Nitrogen 34 mg/dL (9-20); Calcium 8.1 mg/dL (8.4-10.2); Carbon Dioxide 20 mmol/L (22-30); Chloride 110 mmol/L (98-107); Glucose 146 mg/dL (74-99); Non-African American GFR(CKD) >90 (>60 ml/min/1.73 sqM); Potassium 3.4 mmol/L (3.5-5.1); Sodium 138 mmol/L (137-145)
[2020-10-19 04:11] LABS: D-Dimer 28.87 mg/L FEU (<0.60); Partial Thromboplastin Time 46.3 sec (22.0-30.0)
[2020-10-19 04:43] VITALS: TEMP 99.4
[2020-10-19 06:16] LABS: Glucose,Whole Blood 163 mg/dL (75-99)
[2020-10-19] MEDS ORDERED: Potassium Replacement Protocol 1 EACH MISC MISCELLANE PRN (06:21)
[2020-10-19] MEDS: INSULIN ASPART (NovoLOG) 100 UNIT/ML VIAL SQ SCH (06:24)
[2020-10-19] MEDS: ALPRAZolam 0.5 MG TAB PO PRN (06:25)
[2020-10-19] MEDS ORDERED: HEPARIN SODIUM,PORCINE 2,500 UNIT in SODIUM CHLORIDE 0.9% 250 ML IRRIGATION PRN (07:00)
[2020-10-19] MEDS ORDERED: HEPARIN SODIUM,PORCINE 10,000 UNIT in SODIUM CHLORIDE 0.9% 1,000 ML IRRIGATION PRN (07:00)
[2020-10-19] MEDS ORDERED: POTASSIUM CHLORIDE ER 20 MEQ TAB.ER PO SCH (07:00)
[2020-10-19] MEDS ORDERED: EPINEPHrine 10 ML SYRINGE (0.1 MG/ML) ONE (07:09)
[2020-10-19] MEDS ORDERED: SODIUM BICARB 8.4% 50 ML SYR (1 MEQ/ML) ONE (07:09)
[2020-10-19 07:26] VITALS: BP 137/100; PULSE 108; RESP 30
--- NOTE | 2020-10-19 07:58 | P.EN ---
CODE BLUE note: Scene upon arrival: CPR in progress, patient lay on the floor with stool on the floor and blood, IV line displaced and on the floor. Per nursing patient was an PEA arrest. Had already been administered 1 amp of epinephrine and 1 amp of bicarb. Anesthesia present. Code note: CPR in progress, and second pulse check continue PEA on the monitor one additional amp of epinephrine administered. CPR resumed for 2 minutes. Pulse check V. fib noted to be on a monitor and patient was defibrillated with 200 J. CPR resumed. He was unsuccessfully intubated by anesthesia well on the floor. Immediately noting of lindsey red blood returning via ET tube. Good color change on capnography. CPR continued. Additional dose of epinephrine and bicarbonate administered. Continued pulse check patient in PEA which quickly got gradated asystole. Patient had received 3 rounds of CPR and was noted to have lindsey blood continuing from ET tube and coming through IV lines. Time of 717. Nursing will notify attending physician and family.
[2020-10-19] MEDS: ALBUTEROL HFA INHALER INHALATION SCH ×2 (08:46→11:16)
[2020-10-19] MEDS: SYMBICORT 160-4.5 MCG INHALER INHALATION SCH ×2 (08:48→11:17)
[2020-10-19] MEDS ORDERED: ASPIRIN 81 MG PO SCH (09:00)
--- NOTE | 2020-10-19 09:51 | CDI ---
Documentation Clarification Form Mortality Review Date: 10/19/2020 09:22:28 AM From: Ly Duran RN, CCDS Admit Date: 10/14/2020 09:48:00 PM Patient Name: Pan Louie Visit Number: [id number] Discharge Date: 10/19/2020 0717 ATTENTION: The Clinical Documentation Specialists (CDI) and [facility] Coding Staff appreciate your assistance in clarifying documentation. Please respond to the clarification below the line at the bottom and electronically sign. The CDI & [facility] Coding staff will review the response and follow-up if needed. Please note: Queries are made part of the Legal Health Record. If you have any questions, please contact the author of this message via ITS. Dr. Maria Elena Rojas Acute and possibly chronic kidney injury is documented in the 10/15 Pulmonary consult and the 10/16 Pulmonary Progress note. Please stage CKD to accurately reflect SOI/ROM as you are the only provider group to document this diagnosis. History/Risk Factors: 10/02/18 Patients Historical BUN/CR/GFR: 13/09/81 PE, [place] Filter Clinical Indicators: 10/15 Pulmonary consult: "History of peripheral vessel occlusive disease Acute or possibly chronic kidney injury, baseline renal functioning is unknown, but creatinine on this admission is 1.66, and a GFR is 44 mL per minutes." 10/16 Pulmonary Progress note: "Acute or possibly chronic kidney injury, improved and the kidney function is normalized and the creatinine is down to 0.78." 10/14-10/18 Current BUN: 43/30/27/24/34 CR: 1.66/.78/.73/.69/.81 GFR: 51/>90 Treatment: 10/14 0.9% NS IVF bolus 500 cc followed by 75 cc/hr. 10/18 0.9% NS 1L @1ml/kg/hr. In order to capture the severity of condition, please clarify the stage of the CKD, if known: CKD was ruled out CKD Stage 1 (GFR > 90) CKD Stage 2 (GFR 60-89) CKD Stage 3a (GFR 45-59) Other, please specify Unable to determine [Template last reviewed: April 2020] CKD was ruled out MTDD
--- NOTE | 2020-10-19 10:12 | CDI ---
Documentation Clarification Form Mortality Review Date: 10/19/2020 08:50:00 AM From: Ly Duran RN, CCDS Admit Date: 10/14/2020 09:48:00 PM Patient Name: Pan Louie Visit Number: [id number] Discharge Date: 10/19/2020 0717 ATTENTION: The Clinical Documentation Specialists (CDI) and [facility] Coding Staff appreciate your assistance in clarifying documentation. Please respond to the clarification below the line at the bottom and electronically sign. The CDI & [facility] Coding staff will review the response and follow-up if needed. Please note: Queries are made part of the Legal Health Record. If you have any questions, please contact the author of this message via ITS. Dr. Shaikh Sheet The patient presented with the following Acute Covid pneumonia. Please provide clinical significance of below findings to accurately reflect patient SOI/ROM. History/Risk Factors: PE with [place] Filter, Acute Anterior wall SC this admission, Acute Covid 19 Pneumonia Clinical Indicators: 10/19 Code Blue Note: "Patient had received 3 rounds of CPR and was noted to have lindsey blood continuing from ET tube and coming through IV lines. Time of 717." 10/18 Cardiology Consult: "Acute anterior myocardial infarction. Evidence of COVID-19 pneumonitis with significant dyspnea and hypoxemia. Prior history of pulmonary embolism with no evidence of acute pulmonary embolism. There is low probability for pulmonary embolism on V/Q scan. History of peripheral vascular disease, although details not available." 10/18 Vascular Consult: "Acute lower extremity ischemia .Left lower extremity pain .History of peripheral arterial disease Covid-19 infection Hypoxic respiratory failure secondary to coated 19 pneumonia .Acute anterior myocardial infarction History of pulmonary embolism." Lab findings: 10/14-10/18 D-Dimer: 1.46/1.35/4.19/>34.1, Platelets 168/187/184/117/95, PT 10.3/13.5, INR 1.0/1.3, APtt 22.8/27.3/27.4/42.8, Fibrinogen 256 Radiology findings: 10/15 Venous Doppler: Negative for DVT Bilaterally VQ Scan: Low probability of PE Treatment: 10/15 Zithromax 500 mg IVP x 1 dose followed by 500 mg PO Q 24 hrs. 10/16-10/17 10/15-10/17 IV ceftriaxone 1gm IVPB Q 24 hrs. 10/18 Plavix 300 mg PO 10/15-10/17 Lovenox SQ 40mg QD 10/18 Heparin IV Low intensity Protocol 10/14 0.9% NS IVF Bolus 500 cc followed by 75 cc/hr. In your professional opinion, can you please clarify the clinical significance of the above findings? Coagulopathy secondary to Acute Covid 19 infection Coagulopathy secondary to other specified cause (please specify) DIC secondary to Acute Covid 19 infection Other, please specify Unable to determine (Last Revision: November 2017) Coagulopathy secondary to Acute Covid 19 infection MTDD
--- NOTE | 2020-10-19 10:28 | P.ARTDOP ---
Arterial Doppler LOWER EXTREMITY ARTERIAL DOPPLER: DATE OF SERVICE: 10/18/2020 Reason for study: : Patient with absent pulses. Doppler waveforms: Multiphasic right femoral. Atypical left femoral and popliteal. All areas below are atypical. Digital waveforms are flat line.. Pulse volume recording: []. Pressure gradients: Right ankle and left low thigh revealed a pressures measured.. Ankle-brachial indices: 0.34 on the right. Not measured on the left.. Toe brachial indices: [] on the right, [] on the left Impression: Suggests moderate to severe right femoral popliteal disease and severe left iliofemoral disease with suspected femoral-popliteal component. Vascular especially consult recommended..
--- NOTE | 2020-10-19 12:40 | P.DS ---
Providers Date of admission: 10/14/20 21:48 Attending physician: Marco Suarez MD Consults: 10/14/20 21:50 Consult Physician Urgent Consulting Provider: Trevon Tanner Consult Reason/Comments: COVID Do you want consulting provider notified?: Yes, Notify in am 10/14/20 21:51 Consult Physician Urgent Consulting Provider: Martin Patel Consult Reason/Comments: COVID Do you want consulting provider notified?: Yes, Notify in am 10/18/20 05:22 Consult Physician Stat Consulting Provider: [facility] Consult Reason/Comments: acute infarct Do you want consulting provider notified?: Yes 10/18/20 09:25 Consult Physician Stat Consulting Provider: Veronica Bonilla Consult Reason/Comments: pulseless feet Do you want consulting provider notified?: Yes Primary care physician: Lynn Seth Hospital Course: Diagnoses: Acute hypoxic respiratory failure secondary to bilateral COVID 19 pneumonia Coagulopathy secondary to Acute Covid 19 infection Elevated inflammatory markers secondary to above. Acute ST elevation myocardial infarction secondary to distal LAD disease, medical management recommended Bilateral lower extremity ischemia secondary to thrombotic event related to Covid infection Acute kidney injury, resolved Diarrhea second likely secondary to viral infection, improved Elevated d-dimer level History of PE status post Santosh filter placement in 2018 Peripheral vascular disease history Previous history of smoking Hospital course: This is a 68 years old male was admitted to the ICU with acute respiratory failure secondary to cough with pneumonia with possible superimposed bacterial infection, he was treated in the ICU with pulmonary/critical care team Chest x-ray: Bilateral infiltrate He was treated with ceftriaxone and Zithromax, Lovenox 40 mg daily, Solu-Medrol 60 mg, and normal saline at 75 mL per as well as zinc and vitamin, infectious disease team on the case Yesterday patient developed acute ST elevation myocardial infarction.with elevated troponin, 6.5, 22.8 and 52.7. Patient was placed on heparin drip and cartilage team were consulted and patient was taken to emergent cardiac cath, Showing slow flow in the distal LAD with appearance suggestive of a thrombotic event with a slow flow related to the covid 19 infection. No stent was placed and medical therapy recommended Patient was placed on aspirin, Plavix as well as heparin drip. Also metoprolol 25 mg twice daily and Lasix 20 mg twice a day. Also Aldactone Also he was developing leg pain, vascular surgery were consulted. Arterial ultrasound showed moderate to severe right femoral popliteal disease and severe left iliofemoral disease with suspected femoropopliteal compartment. Earlier this morning he got more respiratory distress and his oxygen supply was increased from aervo at 60 L/m placed on BiPAP for pulmonary team recommendation, shortly after he was trying to go to the bathroom where he collapsed and CODE BLUE was activated, CPR was initiated as per protocol and he developed PEA and quickly turned to asystole. Intubation was done during the code and there was bloody discharge per staff. Eventually patient was pronounced at 07:17 am Physical exam: Aborted to do patient expiration Patient Condition at Discharge: Serious Plan - Discharge Summary Discharge Rx Participant: No New Discharge Prescriptions: No Action Clopidogrel Bisulfate [Plavix] 75 mg PO DAILY Aspirin EC [Ecotrin Low Dose] 81 mg PO DAILY Acetaminophen Tab [Tylenol Tab] 1,000 mg PO Q6HR PRN PRN Reason: Pain Or Fever > 100.5 Discharge Medication List Acetaminophen Tab [Tylenol Tab] 1,000 mg PO Q6HR PRN 10/14/20 [History] Aspirin EC [Ecotrin Low Dose] 81 mg PO DAILY 10/14/20 [History] Clopidogrel Bisulfate [Plavix] 75 mg PO DAILY 10/14/20 [History] Follow up Appointment(s)/Referral(s): Lynn Seth DO [Primary Care Provider] - 1-2 days Discharge Disposition: - Preliminary Cause of Preliminary Cause of : pna and STEMI, related to covid
== END 2020-10-19 11:56 | disposition expired | DRG 177 ==
LOC: EC 20:26 → 3SCARD 21:48 → 2SICU 10-15 10:48
PROVIDERS: ADMIT Internal Medicine; ATTEND Internal Medicine
PROC: 5A0955A Assistance with Respiratory Ventilation, Greater than 96 Consecutive Hours, High Flow/Velocity Cannula (ICD-10-PCS; 2020-10-14)
PROC: 4A023N7 Measurement of Cardiac Sampling and Pressure, Left Heart, Percutaneous Approach (ICD-10-PCS; 2020-10-18)
PROC: B2111ZZ Fluoroscopy of Multiple Coronary Arteries using Low Osmolar Contrast (ICD-10-PCS; 2020-10-18)
PROC: 5A12012 Performance of Cardiac Output, Single, Manual (ICD-10-PCS; principal; 2020-10-19)
PROC: 3E033XZ Introduction of Vasopressor into Peripheral Vein, Percutaneous Approach (ICD-10-PCS; 2020-10-19)
PROC: 0BH17EZ Insertion of Endotracheal Airway into Trachea, Via Natural or Artificial Opening (ICD-10-PCS; 2020-10-19)
PROC: 5A09357 Assistance with Respiratory Ventilation, Less than 24 Consecutive Hours, Continuous Positive Airway Pressure (ICD-10-PCS; 2020-10-19)
PROC: B44HZZZ Ultrasonography of Bilateral Lower Extremity Arteries (ICD-10-PCS; 2020-10-19)
DX: U07.1 COVID-19 (principal); J96.01 Acute respiratory failure with hypoxia; J12.82 Pneumonia due to coronavirus disease 2019; I21.09 ST elevation (STEMI) myocardial infarction involving other coronary artery of anterior wall; I50.21 Acute systolic (congestive) heart failure; I82.403 Acute embolism and thrombosis of unspecified deep veins of lower extremity, bilateral; N17.9 Acute kidney failure, unspecified; D68.8 Other specified coagulation defects; A08.39 Other viral enteritis; I27.22 Pulmonary hypertension due to left heart disease; I73.9 Peripheral vascular disease, unspecified; I49.01 Ventricular fibrillation; I46.2 Cardiac arrest due to underlying cardiac condition; I25.5 Ischemic cardiomyopathy; I25.10 Atherosclerotic heart disease of native coronary artery without angina pectoris; D72.810 Lymphocytopenia; I08.3 Combined rheumatic disorders of mitral, aortic and tricuspid valves; R00.0 Tachycardia, unspecified; Z79.82 Long term (current) use of aspirin; Z79.02 Long term (current) use of antithrombotics/antiplatelets; Z86.711 Personal history of pulmonary embolism; Z87.891 Personal history of nicotine dependence; Z95.828 Presence of other vascular implants and grafts; Z98.890 Other specified postprocedural states
CPT/HCPCS: 36415; 36600; 71045; 78580; 80048; 80053; 80061; 81001; 82272; 82550; 82728; 82805; 83605; 83615; 83735; 84132; 84145; 84484; 85025; 85379; 85384; 85610; 85730; 86140; 87040; 87324; 87635; 93005; 93306; 93458; 93922; 93970; 94640; 94660; 99285